=== PATIENT | male | born 1965 | race Caucasian/White ===

== ENCOUNTER 2018-06-12 09:21 | Inpatient (IN) ==
[~2018-06-12 09:21] MED LIST: Aminoglycoside Consult 1 EACH MC ONE
[2018-06-12] MEDS ORDERED: methylPREDNISolone 125 MG/2 ML VIAL IVP ONE (09:42)
[2018-06-12] MEDS ORDERED: Isovue-370 500 ML BOTTLE IVP ONE (09:42)
[2018-06-12] MEDS ORDERED: Ipratropium/Albuterol Neb 3 ML IH ONE (09:42)
[2018-06-12] MEDS ORDERED: 0.9 % Sodium Chloride 500 ML IVC ONE ×2 (09:43→12:05)
--- NOTE | 2018-06-12 09:47 | Emergency Department Note ---
Disposition Clinical Impression: COPD exacerbation, Elevated troponin, Acute respiratory failure with hypoxia Pneumonia Qualifiers: Pneumonia type: due to unspecified organism Laterality: left Lung location: lower lobe of lung Qualified Code(s): J18.1 - Lobar pneumonia, unspecified organism Disposition: Admitted As Inpatient Condition: Fair Time of Disposition: 13:24 General Adult HPI - General Chief complaint: ED Shortness of Breath/Dyspnea Stated complaint: LITTLE Time Seen by Provider: 06/12/18 09:28 Source: patient, EMS Mode of arrival: EMS Limitations: no limitations Nursing Notes Reviewed: Yes Vital Signs Reviewed: Yes - History of Present Illness HPI Narrative: Patient is a 52-year-old male with a past medical history of COPD and lung cancer presents to the emergency department for evaluation of dyspnea that has been going on for approximately 2 days. 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 Patient has undergone chemotherapy and radiation treatments back in February 2018. States over the pas 2 days he has had increased work of breathing, using his when necessary 2 L nasal cannula, 3 breathing treatments since 1 AM it is also had increased sputum production. The patient also complains of right-sided chest pain, however patient states that this is chronic since he has been getting treated for his lung cancer states he also has history of a collapsed right middle lobe. Denies history of blood clots. Squad states the patient was requiring 15 L nonrebreather mask to bring his oxygen up to 100%. Pain Scale: 6 - Related Data Home Medications Medication Instructions Recorded Confirmed RX: Aclidinium [place] [Tudorza 400 mcg IH BID 02/24/16 06/12/18 Pressair] RX: Albuterol Sulfate [Proair Hfa] 2 puff IH Q4H PRN 02/24/16 06/12/18 RX: Budesonide/Formoterol 160/4.5 2 puff IH BIDR 02/24/16 06/12/18 [Symbicort 160/4.5] RX: Cyclobenzaprine HCl 5 mg PO BID 02/24/16 06/12/18 RX: Gabapentin [Neurontin] 300 mg PO BID 02/24/16 06/12/18 Hydrocodone/Acetaminophen [[place] 1 each PO BID PRN 06/12/18 06/12/18 10-325 Tablet] RX: traZODone [TraZODone] 100 mg PO HS 06/12/18 06/12/18 Allergies Allergy/AdvReac Type Severity Reaction Status Date / Time tapentadol [From Nucynta] Allergy Difficulty Verified 06/12/18 09:39 Breathing doxycycline AdvReac Irritable Verified 06/12/18 09:39 levofloxacin [From Levaquin] AdvReac Irritable Verified 09/28/17 09:47 All systems ED: reviewed and negative except as stated. Review of Systems: As Per HPI Constitutional: Denies: fever, chills ENT ED: Denies: congestion Cardiovascular: Reports: chest pain, dyspnea on exertion. Denies: palpitations, edema, syncope, paroxysmal nocturnal dyspnea Respiratory: Reports: cough, dyspnea, wheezes, sputum production. Denies: hemoptysis Gastrointestinal: Denies: abdominal pain, nausea, vomiting Genitourinary: Denies: urgency, dysuria, frequency Musculoskeletal: Denies: back pain, neck pain Integumentary: Denies: rash, abrasion Neurological: Denies: headache Past Medical History - Past Medical History Attestation: Yes The following information was validated with the patient. Medical history: Reports: cancer, COPD Surgical history: Reports: orthopedic, other Psychiatric history: Reports: no psych history - Social History Smoking Status: Light tobacco smoker Smokeless Tobacco Status: No Alcohol use: Reports: none Drug use: Reports: none Physical Exam - General Limitations: no limitations General appearance: alert, in distress ([id number] respiratory distress tachycardic and tachypnea. Difficulty speaking in full sentences.) - Head Head exam: atraumatic, normocephalic, normal inspection - Eye Eye exam: Present: normal appearance, PERRL, EOMI - ENT ENT exam: normal exam, normal oropharynx, mucous membranes dry - Neck Neck exam: Present: normal inspection, full ROM, trachea midline - Chest Chest inspection: Present: normal inspection, symmetric chest wall rise. Absent: tenderness - Respiratory Respiratory exam: Present: respiratory distress, wheezes, other (Diminished sounds throughout) - Cardiovascular Cardiovascular exam: Present: normal rhythm, tachycardia, +S1, +S2 - Abdominal Exam Abdominal exam: Present: soft, Non-Tender. Absent: tenderness, distention, guarding, rebound, rigidity - Extremities Exam Extremities exam: Present: normal inspection, full ROM. Absent: tenderness, pedal edema - Back Exam Back exam: Present: normal inspection, full ROM. Absent: tenderness - Neurological Exam Neurological exam: Present: alert, oriented X3 - Psychiatric Psychiatric exam: Present: normal affect, normal mood - Skin Skin exam: Present: warm, dry, intact, normal color Course Course Narrative: Patient presents with dyspnea and exam shows sinus tachycardia, tachypnea as well as wheezing with diminished lung sounds. He is currently diagnosed with primary lung cancer with metastases to lymph nodes. He receives his treatment from the [facility] in [place], [place]. States last chemotherapy/radiation was in February 2018. Plan is times for the patient undergo evaluation for his dyspnea concern is for COPD exacerbation versus pne umonia versus pulmonary embolism. He is also meeting sepsis criteria with possible source COPD versus pneumonia. We will order lactate, cultures, basic labs and a CTA of the chest to evaluate for PE. Pending chest x-ray patient will be started antibiotics for COPD versus pneumonia. At first he will initiate BiPAP given his respiratory distress at this time. - Reevaluation(s) Reevaluation #1: Antibiotics ordered. Time: 10:51 Reevaluation #2: Patient is improving on BiPAP. His heart rate is in the 105 this is oxygen saturation is at 97%. He states he is feeling better after the breathing treatments. Discussed that his CTA was negative for pulmonary embolism. Discussed plan to admit in the hospital for continued treatment for pneumonia and COPD. I also discussed his elevation in troponin which is most likely due to demand ischemia. I discussed the patient's case with the hospitalist on-call and he agreed to accept the patient requested that we start the patient on low- dose ACS heparin. They have artery placed orders. Patient was accepted the hospital. Time: 13:23 Vital Signs Temperature 98.3 F 06/12/18 09:27 Pulse Rate 131 06/12/18 09:27 Respiratory Rate 36 06/12/18 09:27 Blood Pressure 87/65 06/12/18 09:27 O2 Sat by Pulse Oximetry 83 06/12/18 09:27 Temperature 97.8 F 06/13/18 04:08 Pulse Rate 110 06/13/18 12:08 Respiratory Rate 16 06/13/18 12:08 Blood Pressure 125/82 06/13/18 12:08 O2 Sat by Pulse Oximetry 91 06/13/18 12:08 Oxygen Delivery Oxygen Delivery Oximizer Medical Decision Making - Medical Records Medical records reviewed: Yes I reviewed the patient's medical records. - Lab Data Lab results reviewed: Yes I reviewed the patient's lab results. Result diagrams: 06/13/18 00:38 06/13/18 00:38 Lab Results 06/12/18 06/12/18 06/12/18 Range/Units 10:25 10:25 10:25 WBC 16.7 H (4.3-11.1) K/mcL RBC 4.13 L (4.19-5.50) M/mcL Hgb 13.3 (12.9-16.9) g/dL Hct 39.4 (37.5-50.1) % MCV 95.4 (83.0-100.0) fL MCH 32.2 (28.0-33.3) pg MCHC 33.8 (31.6-35.5) g/dL RDW 13.2 (11.5-14.5) % Plt Count 204 (140-400) K/mcL MPV 9.5 (9.4-12.4) fL Immature Gran % 0.4 (0-4) % Seg Neutrophils % 92.3 % Lymphocytes % 2.1 % Monocytes % 5.0 % Eosinophils % 0.1 % Basophils % 0.1 % Neutrophils # 15.4 H (1.6-8.9) K/mcL Lymphocytes # 0.4 L (0.6-4.6) K/mcL Monocytes # 0.8 (0.0-1.3) K/mcL Eosinophils # 0.0 (0.0-0.6) K/mcL Basophils # 0.0 (0.0-0.2) K/mcL PT (9.4-12.1) Seconds INR Heparin Anti-Xa, Unfract (0.30-0.70) IU/mL ABG pH (7.32-7.45) pH Units ABG pCO2 (35-45) mmHg ABG pO2 (85-104) mmHg ABG HCO3 (21-27) mEq/L ABG Total CO2 (20-26) mEq/L ABG O2 Saturation (95-98) % ABG Base Excess (-2 to 3) mEq/L O2 Delivery Device Inspired O2 (1-15=lpm [id number]=%) Sodium 130 L (136-145) mEq/L Potassium 4.4 (3.5-5.1) mEq/L Chloride 96 L (98-107) mEq/L Carbon Dioxide 20 L (23-29) mEq/L BUN 28 H (6-20) mg/dL Creatinine 0.81 (0.70-1.30) mg/dL Est GFR ( Amer) > 60 (> 60) Est GFR (Non-Af Amer) > 60 (> 60) BUN/Creatinine Ratio 35 H (6-26) Glucose 109 H (70-105) mg/dL Calculated Osmolality 276 L (280-300) Lactic Acid 1.1 (0.5-2.2) mmol/L Calcium 8.1 L (8.6-10.3) mg/dL Phosphorus 3.6 (2.7-4.5) mg/dL Magnesium 2.1 (1.6-2.6) mg/dL Troponin I 0.26 H* (< 0.04) ng/mL 06/12/18 06/12/18 06/12/18 Range/Units 13:11 13:11 13:11 WBC 15.7 H (4.3-11.1) K/mcL RBC 4.04 L (4.19-5.50) M/mcL Hgb 13.2 (12.9-16.9) g/dL Hct 39.0 (37.5-50.1) % MCV 96.5 (83.0-100.0) fL MCH 32.7 (28.0-33.3) pg MCHC 33.8 (31.6-35.5) g/dL RDW 13.0 (11.5-14.5) % Plt Count 202 (140-400) K/mcL MPV 9.4 (9.4-12.4) fL Immature Gran % (0-4) % Seg Neutrophils % % Lymphocytes % % Monocytes % % Eosinophils % % Basophils % % Neutrophils # (1.6-8.9) K/mcL Lymphocytes # (0.6-4.6) K/mcL Monocytes # (0.0-1.3) K/mcL Eosinophils # (0.0-0.6) K/mcL Basophils # (0.0-0.2) K/mcL PT 11.4 (9.4-12.1) Seconds INR 1.0 Heparin Anti-Xa, Unfract 0.00 L (0.30-0.70) IU/mL ABG pH (7.32-7.45) pH Units ABG pCO2 (35-45) mmHg ABG pO2 (85-104) mmHg ABG HCO3 (21-27) mEq/L ABG Total CO2 (20-26) mEq/L ABG O2 Saturation (95-98) % ABG Base Excess (-2 to 3) mEq/L O2 Delivery Device Inspired O2 (1-15=lpm [id number]=%) Sodium (136-145) mEq/L Potassium (3.5-5.1) mEq/L Chloride (98-107) mEq/L Carbon Dioxide (23-29) mEq/L BUN (6-20) mg/dL Creatinine (0.70-1.30) mg/dL Est GFR ( Amer) (> 60) Est GFR (Non-Af Amer) (> 60) BUN/Creatinine Ratio (6-26) Glucose (70-105) mg/dL Calculated Osmolality (280-300) Lactic Acid (0.5-2.2) mmol/L Calcium (8.6-10.3) mg/dL Phosphorus (2.7-4.5) mg/dL Magnesium (1.6-2.6) mg/dL Troponin I 0.28 H* (< 0.04) ng/mL 06/12/18 06/12/18 Range/Units 17:04 18:53 WBC (4.3-11.1) K/mcL RBC (4.19-5.50) M/mcL Hgb (12.9-16.9) g/dL Hct (37.5-50.1) % MCV (83.0-100.0) fL MCH (28.0-33.3) pg MCHC (31.6-35.5) g/dL RDW (11.5-14.5) % Plt Count (140-400) K/mcL MPV (9.4-12.4) fL Immature Gran % (0-4) % Seg Neutrophils % % Lymphocytes % % Monocytes % % Eosinophils % % Basophils % % Neutrophils # (1.6-8.9) K/mcL Lymphocytes # (0.6-4.6) K/mcL Monocytes # (0.0-1.3) K/mcL Eosinophils # (0.0-0.6) K/mcL Basophils # (0.0-0.2) K/mcL PT (9.4-12.1) Seconds INR Heparin Anti-Xa, Unfract (0.30-0.70) IU/mL ABG pH 7.32 (7.32-7.45) pH Units ABG pCO2 47 H (35-45) mmHg ABG pO2 114 H (85-104) mmHg ABG HCO3 25 (21-27) mEq/L ABG Total CO2 26 (20-26) mEq/L ABG O2 Saturation 98 (95-98) % ABG Base Excess -2 (-2 to 3) mEq/L O2 Delivery Device BiPAP Inspired O2 50.0 (1-15=lpm ma95-183=%) Sodium (136-145) mEq/L Potassium (3.5-5.1) mEq/L Chloride (98-107) mEq/L Carbon Dioxide (23-29) mEq/L BUN (6-20) mg/dL Creatinine (0.70-1.30) mg/dL Est GFR ( Amer) (> 60) Est GFR (Non-Af Amer) (> 60) BUN/Creatinine Ratio (6-26) Glucose (70-105) mg/dL Calculated Osmolality (280-300) Lactic Acid (0.5-2.2) mmol/L Calcium (8.6-10.3) mg/dL Phosphorus (2.7-4.5) mg/dL Magnesium (1.6-2.6) mg/dL Troponin I 0.24 H* (< 0.04) ng/mL - Radiology Data Radiology results reviewed: Yes I reviewed the patient's radiology results. Chest X-Ray 06/12/18 09:41 IMPRESSION: COPD with chronic interstitial lung changes. Bibasilar atelectasis or infiltrate left greater than right. D/ / 06/12/2018 10:01:45 Harpreet Ash MD / Michelle Conley Interpreting Provider: Harpreet Ash MD Chest CTA 06/12/18 09:42 IMPRESSION: 1. No acute pulmonary artery embolism. 2. Emphysema with interval development small thin walled cavitary lesions within the upper lobes concerning for postinfectious/inflammatory origin. Continued close interval follow-up recommended. 3. Bilateral lower lobe, right middle lobe and lingular peribronchial thickening with distal airspace disease. Findings suggest postinfectious or inflammatory origin. Continued follow-up recommended to assure resolution. 4. Stable right middle lobe pulmonary nodule. D/ / 06/12/2018 12:13:08 Harpreet Ash MD / Michelle Conley Interpreting Provider: Harpreet Ash MD - EKG Data EKG #1 EKG attestation: Yes I reviewed and interpreted this EKG. EKG results narrative: EKG done at 9:56 shows sinus tachycardia at a rate of 119 bpm. Normal axis. Intervals within normal limits. No signs of ST elevation, ST depression or Q waves present. Attestation Statement - Attestation Attestation: Resident Attestation: I examined this patient and my medical decision making was reviewed with the Resident Physician. I agree with the documented findings, disposition and treatment plan as described except to the extent set forth below. We independently had [id number] contact with the patient. Patient with history of lung cancer previously underwent chemoradiation therapy. Not on current cancer treatment presented for evaluation of shortness of breath worsening over the last 2 days. Further evaluation and workup and to underlying etiology. Breathing treatments and steroids and further investigation. Moderate respiratory distress with associated wheezing to bilateral lung sesay Patient with elevated troponin. CTA negative. Patient significant improved with BiPAP. Patient will undergo admission for further management.
[2018-06-12 10:44] LABS: Basophils % 0.1 %; Eosinophils % 0.1 %; Hematocrit 39.4 % (37.5-50.1); Hemoglobin 13.3 g/dL (12.9-16.9); Immature Granulocytes % 0.4 % (0-4); Lymphocytes # 0.4 K/mcL (0.6-4.6); Lymphocytes % 2.1 %; Mean Corpuscular HGB Conc 33.8 g/dL (31.6-35.5); Mean Corpuscular Hemoglobin 32.2 pg (28.0-33.3); Mean Corpuscular Volume 95.4 fL (83.0-100.0); Mean Platelet Volume 9.5 fL (9.4-12.4); Monocytes # 0.8 K/mcL (0.0-1.3); Neutrophils # 15.4 K/mcL (1.6-8.9); Platelet Count 204 K/mcL (140-400); Red Blood Count 4.13 M/mcL (4.19-5.50); Red Cell Distribution Width 13.2 % (11.5-14.5); Segmented Neutrophils % 92.3 %
[2018-06-12] MEDS ORDERED: Piperacillin/Tazobactam 3.375 GM in Water for inj. (sterile) 20 ML 20 ML IVP ONE (10:49)
[2018-06-12] MEDS ORDERED: Azithromycin 500 MG in D5% in Water 250 ML IVPB ONE (10:50)
[2018-06-12 11:03] LABS: BUN/Creatinine Ratio 35 (6-26); Blood Urea Nitrogen 28 mg/dL (6-20); Calcium 8.1 mg/dL (8.6-10.3); Carbon Dioxide 20 mEq/L (23-29); Chloride 96 mEq/L (98-107); Glucose 109 mg/dL (70-105); Magnesium 2.1 mg/dL (1.6-2.6); Osmolality,Calculated 276 (280-300); Phosphorous 3.6 mg/dL (2.7-4.5); Potassium 4.4 mEq/L (3.5-5.1); Sodium 130 mEq/L (136-145); eGFR For Non-African Americans > 60 (> 60)
[2018-06-12 11:14] LABS: Troponin I 0.26 ng/mL (< 0.04)
[2018-06-12] MEDS ORDERED: Aspirin 325 MG TABLET PO ONE (12:41)
[2018-06-12] MEDS ORDERED: Naloxone 0.4 MG/ML INJ IVP PRN (12:50)
[2018-06-12] MEDS ORDERED: traMADol 50 MG TABLET PO PRN (12:52)
[2018-06-12] MEDS ORDERED: *HR* Heparin 5,000 UNIT/ML VIAL IVP ONE (12:55)
[2018-06-12] MEDS ORDERED: *HR* Heparin 5,000 UNIT/ML VIAL IVP PRN (12:55)
[2018-06-12 13:31] LABS: Hemoglobin 13.2 g/dL (12.9-16.9); Mean Corpuscular HGB Conc 33.8 g/dL (31.6-35.5); Mean Corpuscular Hemoglobin 32.7 pg (28.0-33.3); Mean Corpuscular Volume 96.5 fL (83.0-100.0); Mean Platelet Volume 9.4 fL (9.4-12.4); Platelet Count 202 K/mcL (140-400); Red Blood Count 4.04 M/mcL (4.19-5.50)
[2018-06-12 13:48] LABS: Prothrombin Time 11.4 Seconds (9.4-12.1)
[2018-06-12] MEDS: Heparin 25,000 UNIT/500 ML D5W 25,000 UNIT/500 ML BAG IVC SCH (15:03)
--- NOTE | 2018-06-12 15:29 | Internal Med History&Physical ---
Date of Encounter: 06/12/18 Time of Encounter: 15:00 Internal Medicine - H&P: HPI Chief complaint: Shortness of breath, coughing, chest pain and wheezing since tuesday History of present illness: Mr. Garcia is a 52 year old male with pmh of lung cancer s/p one cycle of chemotherapy and radiation, tobacco abuse, COPD presenting with complaints of shortness of breath, coughing and wheezing since tuesday. Patient says symptoms were sudden onset and have persisted till today when he had to call EMS because the shortness of breath wasn't resolving. He denies any fevers or chills, admits to wheezing. He also complains of a pressure like left sided chest pain that has been radiating to the right side of 2 days duration. Per EMS, he was noted to be hypoxic at home and required 15L of oxygen via non rebreather mask to bring his sats up to 100% In the ER, he was placed on BIPAP and appears more comfortable. e was started on nebs and steroids and he is being admitted for further management. Past Med Surg Social Fam HX - Past Medical History Medical history: cancer, COPD Additional medical history: lung cancer Psychiatric history: no psych history - Past Surgical History Surgical History: orthopedic, other Additional surgical history: 2 left shoulder surgeries - left CTR - colonoscopy - Social History Smoking Status: Light tobacco smoker Smokeless Tobacco Status: No Alcohol use: none Drug use: none Internal Medicine - H&P: Meds Fluticasone Propionate Nasal [Flonase] 2 spray NS DAILY 7 Days bottle 06/28/15 [Rx] Aclidinium [place] [Tudorza Pressair] 400 mcg IH BID 02/24/16 [History] Albuterol Sulfate [Proair Hfa] 2 puff IH Q4H PRN 02/24/16 [History] Budesonide/Formoterol 160/4.5 [Symbicort 160/4.5] 2 puff IH BIDR 02/24/16 [History] Cyclobenzaprine HCl 5 mg PO BID 02/24/16 [History] Gabapentin [Neurontin] 300 mg PO BID 02/24/16 [History] traMADol [Ultram] 50 mg PO Q6H PRN 02/24/16 [History] Nicotine Patch [Nicoderm] 21 mg TD DAILY patch.td24 02/25/16 [Rx] DiphenhydraMINE [Benadryl] 50 mg PO Q8HR PRN #30 capsule 12/29/16 [Rx] Allergy/AdvReac Type Severity Reaction Status Date / Time tapentadol [From Nucynta] Allergy Difficulty Verified 06/12/18 09:39 Breathing doxycycline AdvReac Irritable Verified 06/12/18 09:39 levofloxacin [From Levaquin] AdvReac Irritable Verified 09/28/17 09:47 All Systems PM: A 10-system review of systems was performed and is negative for pertinent findings except as documented above in the HPI. - Constitutional Constitutional: no chills, no fever(s), no night sweats - EENT Eyes: no change in vision, no discharge, no pain, no photophobia Ears: no ear discharge, no ear pain, no tinnitus Nose, mouth and throat: no dysphagia, no nasal discharge, no neck pain, no sore throat - Cardiovascular Cardiovascular ROS IM: dyspnea, no chest pain, no lightheadedness, no palpitations, no syncope - Respiratory Respiratory: cough, dyspnea, wheezing, no excessive phlegm production - Gastrointestinal Gastrointestinal: no abdominal pain, no diarrhea, no hematemesis, no hematochezia, no melena, no nausea, no vomiting - Musculoskeletal Musculoskeletal ROS IM: no numbness, no tingling - Integumentary Integumentary IM: no rash, no unusual bruising - Neurological Neurological ROS: no confusion, no convulsions, no focal weakness, no numbness, no tingling, no tremor(s) - Hematologic/Lymphatic Hematologic/Lymphatic: no easy bruising - Constitutional Vitals: Temp Pulse Resp BP Pulse Ox 98.3 F 108 22 100/75 99 06/12/18 09:27 06/12/18 15:08 06/12/18 15:08 06/12/18 15:08 06/12/18 15:08 General appearance: Present: mild distress Exam: Pt in mild respiratory distress. ON BIPAP - Head Head exam: Present: atraumatic, normocephalic - Eye Eye exam: Present: PERRL, conjuntiva pink, sclera anicteric Pupils: Present: PERRL - Neck Neck exam general surgery: Present: supple, trachea midline. Absent: lymphadenopathy - Respiratory Respiratory exam: Present: wheezes. Absent: accessory muscle use, rales, rhonchi - Cardiovascular Cardiovascular exam: Present: RRR, +S1, +S2. Absent: diastolic murmur, gallop, rubs, systolic murmur - GI/Abdominal GI/Abdominal exam: Present: normal bowel sounds, soft, no peritoneal signs. Absent: distended, tenderness - Extremities Exam Extremities exam: Present: warm, radial pulses palpable and symmetrical. Absent: calf tenderness, cyanotic, pedal edema - Neurological Exam Neurological exam: Present: CN II-XII intact, oriented X3, no focal deficits. Absent: pronater drift, facial droop, speech deficit - Skin Skin exam: Present: dry, intact Internal Med - H&P Results - Labs CBC & Chem 7: 06/12/18 13:11 06/12/18 10:25 Labs: Short CBC 06/12/18 06/12/18 Range/Units 10:25 13:11 WBC 16.7 H 15.7 H (4.3-11.1) K/mcL Hgb 13.3 13.2 (12.9-16.9) g/dL Hct 39.4 39.0 (37.5-50.1) % Plt Count 204 202 (140-400) K/mcL Neutrophils # 15.4 H (1.6-8.9) K/mcL BMP 06/12/18 10:25 Sodium 130 L Potassium 4.4 Chloride 96 L Carbon Dioxide 20 L BUN 28 H Creatinine 0.81 Glucose 109 H Calcium 8.1 L Cardiac Enzymes 06/12/18 06/12/18 Range/Units 10:25 13:11 Troponin I 0.26 H* 0.28 H* (< 0.04) ng/mL - Impressions ITS Impressions Chest X-Ray 06/12/18 09:41 IMPRESSION: COPD with chronic interstitial lung changes. Bibasilar atelectasis or infiltrate left greater than right. D/ / 06/12/2018 10:01:45 Harpreet Ash MD / Michelle Conley Interpreting Provider: Harpreet Ash MD Chest CTA 06/12/18 09:42 IMPRESSION: 1. No acute pulmonary artery embolism. 2. Emphysema with interval development small thin walled cavitary lesions within the upper lobes concerning for postinfectious/inflammatory origin. Continued close interval follow-up recommended. 3. Bilateral lower lobe, right middle lobe and lingular peribronchial thickening with distal airspace disease. Findings suggest postinfectious or inflammatory origin. Continued follow-up recommended to assure resolution. 4. Stable right middle lobe pulmonary nodule. D/ / 06/12/2018 12:13:08 Harpreet Ash MD / Michelle Conley Interpreting Provider: Harpreet Ash MD - Assessment and plan (1) Acute respiratory failure with hypoxia Current Visit: Yes Status: Acute Assessment and plan: Pt presents with cough, shortness of breath and wheezing since tuesday with hypoxia and O2 sats of 83% Currently on BIPAP with 50% FiO2. required 100% oxygen via facemask in EMS. Likely 2/2 to COPD exacerbation Obtain ABG, conitnue on BIPAP, nebs, steroids and antibiotics. On vanc and zosyn for possible HCAP (2) COPD exacerbation Current Visit: Yes Status: Acute Assessment and plan: See #1. continue BIPAP, nebs, steroids and antibiotics (3) Pneumonia Current Visit: Yes Status: Acute Assessment and plan: Pt has elevated WBC of 15 query bacterial HCAP. Obtain blood cultures ON vanc and zosyn Qualifiers: Pneumonia type: due to unspecified organism Laterality: left Lung location: lower lobe of lung Qualified Code(s): J18.1 - Lobar pneumonia, unspecified organism (4) Elevated troponin Current Visit: Yes Status: Acute Assessment and plan: Pt has chest pain with troponins eevated to 0.26 which is much higher than his baseline of negative troponins HAs risk factors for CAD including age and tobacco abuse. Started on a heparin drip, cardiology consulted (5) Chest pain Current Visit: No Status: Acute Assessment and plan: See plan for elevated troponins Qualifiers: Chest pain type: chest pain on breathing Qualified Code(s): R07.1 - Chest pain on breathing (6) Tobacco abuse disorder Current Visit: Yes Status: Acute Assessment and plan: Counseled (7) DVT prophylaxis Current Visit: Yes Status: Acute Assessment and plan: On heparin drip - Time Spent With Patient Total time spent is greater than 50% in coordination of care (as documented) at patient's floor/unit and/or counseling patient:
[2018-06-12] MEDS ORDERED: Piperacillin/Tazobactam 3.375 GM in 0.9 % Sodium Chloride Mini Bag 100 ML IVPB SCH (16:00)
[2018-06-12] MEDS: Budesonide/Formoterol 160/4.5 1 PUFF INH IH SCH ×2 (16:11→20:02)
[2018-06-12] MEDS: Ipratropium/Albuterol Neb 3 ML IH SCH ×2 (17:02→20:01)
[2018-06-12 17:11] LABS: ABG Base Excess -2 mEq/L (-2 to 3); ABG HCO3 25 mEq/L (21-27); ABG Oxygen Saturation 98 % (95-98); ABG PCO2 47 mmHg (35-45); ABG PH 7.32 pH Units (7.32-7.45); ABG PO2 114 mmHg (85-104); ABG TCO2 26 mEq/L (20-26)
[2018-06-12] MEDS: methylPREDNISolone 125 MG/2 ML VIAL IVP SCH (17:24)
[2018-06-12] MEDS ORDERED: *HR* Heparin 5,000 UNIT/ML VIAL SQ SCH (18:00)
[2018-06-12] MEDS: *HR* Heparin 5,000 UNIT/ML VIAL IVP PRN (23:49)
[2018-06-12] MEDS: Gabapentin 300 MG CAPSULE PO SCH (23:56)
[2018-06-13] MEDS: Ipratropium/Albuterol Neb 3 ML IH SCH ×6 (00:42→20:16)
[2018-06-13 00:54] LABS: Basophils % 0.1 %; Hematocrit 37.8 % (37.5-50.1); Hemoglobin 12.7 g/dL (12.9-16.9); Immature Granulocytes % 0.2 % (0-4); Lymphocytes # 0.4 K/mcL (0.6-4.6); Lymphocytes % 2.4 %; Mean Corpuscular HGB Conc 33.6 g/dL (31.6-35.5); Mean Corpuscular Hemoglobin 31.8 pg (28.0-33.3); Mean Corpuscular Volume 94.7 fL (83.0-100.0); Mean Platelet Volume 9.7 fL (9.4-12.4); Monocytes # 0.5 K/mcL (0.0-1.3); Monocytes % 3.3 %; Neutrophils # 15.2 K/mcL (1.6-8.9); Platelet Count 196 K/mcL (140-400); Red Blood Count 3.99 M/mcL (4.19-5.50); Red Cell Distribution Width 13.1 % (11.5-14.5)
[2018-06-13] MEDS: methylPREDNISolone 125 MG/2 ML VIAL IVP SCH ×4 (01:18→23:35)
[2018-06-13 02:06] LABS: BUN/Creatinine Ratio 36 (6-26); Blood Urea Nitrogen 21 mg/dL (6-20); Calcium 8.7 mg/dL (8.6-10.3); Carbon Dioxide 23 mEq/L (23-29); Chloride 99 mEq/L (98-107); Glucose 131 mg/dL (70-105); Magnesium 2.4 mg/dL (1.6-2.6); Osmolality,Calculated 285 (280-300); Phosphorous 2.2 mg/dL (2.7-4.5); Potassium 4.4 mEq/L (3.5-5.1); Sodium 135 mEq/L (136-145); eGFR For Non-African Americans > 60 (> 60)
[2018-06-13] MEDS: Piperacillin/Tazobactam 3.375 GM in 0.9 % Sodium Chloride Mini Bag 100 ML IVPB SCH ×3 (05:40→21:26)
[2018-06-13] MEDS: Budesonide/Formoterol 160/4.5 1 PUFF INH IH SCH ×2 (07:44→20:16)
[2018-06-13 09:33] LABS: Estimated Average Glucose 128 mg/dl; Hemoglobin A1C 6.1 %
[2018-06-13 09:41] LABS: Chol/HDL Ratio 2.7 (0-4.9)
[2018-06-13] MEDS: Aspirin Enteric Coated 81 MG Tablet PO SCH (10:26)
[2018-06-13] MEDS: Gabapentin 300 MG CAPSULE PO SCH ×2 (10:26→20:44)
[2018-06-13] MEDS: Nicotine 21 MG PATCH.TD24 TD SCH (10:28)
[2018-06-13] MEDS: *HR* Heparin 5,000 UNIT/ML VIAL IVP PRN ×2 (10:28→18:02)
--- NOTE | 2018-06-13 11:34 | Internal Med Progress Note ---
Hospitalist Progress Note - Encounter Date of Encounter: 06/13/18 Time of Encounter: 09:00 - Subjective Interval History: H&P reviewed. Pt with history of lung cancer s/p chemoradiotx x 1 cycle, completed 01/2018, COPD is admitted for hypoxic respiratory failure. CT showed small thin walled cavitary lesions within the upper lobes concerning for postinfectious/inflammatory origin as well as bilateral lower lobe, right middle lobe and lingular peribronchial thickening with distal airspace disease. Was initialy requiring BiPaP which has been weaned. Feels more comfortable to breath now, denies any chest pain or SOB. - Exam Vitals: Temp Pulse Resp BP Pulse Ox 97.8 F 98 17 110/65 95 06/13/18 04:08 06/13/18 07:47 06/13/18 07:47 06/13/18 07:47 06/13/18 07:47 Exam: General: Alert and oriented, not in acute distress. Cardiovascular:Normal S1 & S2, No JVD. Pulse regular. Lungs: bilateral wheezes Abdomen:Soft, non-tender, no rigidity. Extremities:No deformity or swelling Neurological:Normal cognition and motor skills. Non-focal - Assessment and Plan (1) Acute respiratory failure with hypoxia Current Visit: Yes Status: Acute Assessment and Plan: Pt presents with cough, shortness of breath and wheezing since tuesday with hypoxia Likely 2/2 to PNA complicated by COPD exacerbation CT finding as above started on vanc/zosyn, will continue zosyn but d/c vanc as MRSA -ve add macrolide continue steroids, bronchodilators check respiratory viral panel pt states that he had recent CT Chest as outpatient at [facility] ~ 2 weeks ago, obtain old records to compare the appearance of upper lobe cavitary lesions if they are new, may require pulm consult for ?bronchoscopy (2) Elevated troponin Current Visit: Yes Status: Acute Assessment and Plan: troponin peaked at 0.28 without concerning EKG changes or symptoms of ACS, in the setting of hypoxic respiratory failure started on heparin gtt, will continue daily ASA for now pt states that he has had recent stress at [facility] as well, obtain old records echocardiogram follow with cardiology (3) COPD exacerbation Current Visit: Yes Status: Acute Assessment and Plan: as above (4) Pneumonia Current Visit: Yes Status: Acute Assessment and Plan: as above strep/legionella ag (5) Tobacco abuse disorder Current Visit: Yes Status: Acute Assessment and Plan: counseling provided NRT (6) DVT prophylaxis Current Visit: Yes Status: Acute Assessment and Plan: On heparin drip - Time Spent with Patient Total time spent is greater than 50% in coordination of care (as documented) at patient's floor/unit and/or counseling patient: Plan of Care Discussed with: patient Internal Medicine: Result - Labs CBC & Chem 7: 06/13/18 00:38 06/13/18 00:38 Labs: Short CBC 06/12/18 06/13/18 Range/Units 13:11 00:38 WBC 15.7 H 16.2 H (4.3-11.1) K/mcL Hgb 13.2 12.7 L (12.9-16.9) g/dL Hct 39.0 37.8 (37.5-50.1) % Plt Count 202 196 (140-400) K/mcL Neutrophils # 15.2 H (1.6-8.9) K/mcL BMP 06/13/18 00:38 Sodium 135 L Potassium 4.4 Chloride 99 Carbon Dioxide 23 BUN 21 H Creatinine 0.59 L Glucose 131 H Calcium 8.7 Cardiac Enzymes 06/12/18 06/12/18 06/13/18 Range/Units 13:11 18:53 00:38 Troponin I 0.28 H* 0.24 H* 0.17 H* (< 0.04) ng/mL - ABG Interpretation ABG results: ABG ABG pH 7.32 pH Units (7.32-7.45) 06/12/18 17:04 ABG pCO2 47 mmHg (35-45) H 06/12/18 17:04 ABG pO2 114 mmHg (85-104) H 06/12/18 17:04 ABG O2 Saturation 98 % (95-98) 06/12/18 17:04 PT/INR, D-dimer PT 11.4 Seconds (9.4-12.1) 06/12/18 13:11 - Impressions Impressions Chest X-Ray 06/12/18 09:41 IMPRESSION: COPD with chronic interstitial lung changes. Bibasilar atelectasis or infiltrate left greater than right. D/ / 06/12/2018 10:01:45 Harpreet Ash MD / Michelle Conley Interpreting Provider: Harpreet Ash MD Chest CTA 06/12/18 09:42 IMPRESSION: 1. No acute pulmonary artery embolism. 2. Emphysema with interval development small thin walled cavitary lesions within the upper lobes concerning for postinfectious/inflammatory origin. Continued close interval follow-up recommended. 3. Bilateral lower lobe, right middle lobe and lingular peribronchial thickening with distal airspace disease. Findings suggest postinfectious or inflammatory origin. Continued follow-up recommended to assure resolution. 4. Stable right middle lobe pulmonary nodule. D/ / 06/12/2018 12:13:08 Harpreet Ash MD / Michelle Conley Interpreting Provider: Harpreet Ash MD Consult Discharge Plan - Plan Referrals: Luzma Lewis DO [Resident] - (4) Pneumonia Qualifiers: Pneumonia type: due to unspecified organism Laterality: left Lung location: lower lobe of lung Qualified Code(s): J18.1 - Lobar pneumonia, unspecified organism
[2018-06-13] MEDS ORDERED: Azithromycin 500 MG in D5% in Water 250 ML IVPB SCH (12:00)
--- NOTE | 2018-06-13 12:36 | Cardiology Consult Note ---
<Salina Dupree - Last Filed: 06/13/18 12:41> Date of Encounter: 06/13/18 Time of Encounter: 09:00 Assessment and Plan (1) Acute respiratory failure with hypoxia Current Visit: Yes Status: Acute Per cardiology: -Admitted with acute hypoxic respiratory failure. -?pneumonia, ATB ordered. -Known lung CA with mets, being treated with chemo and radiation -Management per primary service. (2) Elevated troponin Current Visit: Yes Status: Acute Per cardiology: -Troponins 0.26, 0.28, 0.24, 0.17 in the setting of hypoxic respiratory failure, pneumonia. -Reports atypical, pleuritic chest pain. -NO acute ischemic ECG changes. -TTE pending. -Was started on ASA, heparin per primary service. -Reports recent stress and echo at [facility]. -Of note, reports hemoptysis. Denies hemotpysis overnight. Hemoglobin stable. -Possible demand ischemia related to above. TTE pending. -Will start BB, statin. -Will obtain records from [facility]. -Monitor hemoglobin and for hemoptysis closely with ASA and heparin. Discussion w patient/family: The assessment and plan as outlined above was discussed with the patient who expressed understanding and agreement. All questions were answered. Thank you for involving us in the care of your patient. Please call with any questions. Discussed and reviewed with . History of Present Illness Consult date: 06/12/18 Requesting physician: Ja Arredondo Consult reason: elevated troponin Chief complaint: shortness of breath History of present illness: Mr. Garcia is a 52 year old male with a relevant past medical history of COPD, lung cancer s/p chemo and radiation at [facility], current tobacco abuse, who presented to [facility] with complaints of worsening shortness of breath. Patient reports symptoms started on Tuesday and became progressively worse. Patient reports chest pain with deep breathing and cough. Denies current or exertional chest pain. Reports breathing improved today. Patient also reports hemoptysis over the past couple of weeks. Denies hemoptysis overnight. Past Med Surg Social Fam HX - Past Medical History Attestation: Yes The following information was validated with the patient. Source: patient, old records reviewed Medical history: cancer, COPD Additional medical history: lung cancer Psychiatric history: no psych history - Past Surgical History Surgical History: orthopedic, other Additional surgical history: 2 left shoulder surgeries - left CTR - colonoscopy - Social History Smoking Status: Light tobacco smoker Packs per day: 1/4 pack per day Smokeless Tobacco Status: No Alcohol use: none Drug use: none - Family History Mother Adopted: Yes Name: Lana Garcia Living Status: Age at : 89 Cause of : Old age Father Name: Zen Garcia Living Status: Age at : 58 Cause of : Lung cancer Hx Family Cancer: Yes Medications and Allergies Aclidinium [place] [Tudorza Pressair] 400 mcg IH BID 02/24/16 [History] Albuterol Sulfate [Proair Hfa] 2 puff IH Q4H PRN 02/24/16 [History] Budesonide/Formoterol 160/4.5 [Symbicort 160/4.5] 2 puff IH BIDR 02/24/16 [History] Cyclobenzaprine HCl 5 mg PO BID 02/24/16 [History] Gabapentin [Neurontin] 300 mg PO BID 02/24/16 [History] Hydrocodone/Acetaminophen [[place] 10-325 Tablet] 1 each PO BID PRN 06/12/18 [History] traZODone [TraZODone] 100 mg PO HS 06/12/18 [History] Allergy/AdvReac Type Severity Reaction Status Date / Time tapentadol [From Nucynta] Allergy Difficulty Verified 06/12/18 09:39 Breathing doxycycline AdvReac Irritable Verified 06/12/18 09:39 levofloxacin [From Levaquin] AdvReac Irritable Verified 09/28/17 09:47 All Systems Review: The remainder of the systems were reviewed and are negative - Cardiovascular Cardiovascular: as per HPI, chest pain at rest, dyspnea at rest, dyspnea on exertion Physical Examination Vital Signs, Last 4 Hours Pulse Resp BP Pulse Ox 06/13/18 12:08 110 16 125/82 91 06/13/18 11:37 18 93 General: Conversant, No Apparent Distress HEENT: Atraumatic, Normocephaly, Mucus Membranes Moist Neck: No JVD, Normal carotid pulses Cardiac: Reg Rate and Rhythm, Normal S1 and S2, No Murmur Lungs: Other (Lung sounds coarse, wheezes noted throughout. ) Neuro: Alert and responsive, No focal deficits noted Abdomen: Soft, Non-Tender Skin: No rashes noted on visualized skin Musculoskeletal: No Chest Wall Tenderness Extremities: No Clubbing, No Cyanosis, No Edema, Normal Pulses Results 06/13/18 00:38 06/13/18 00:38 Lab Results Impressions Chest X-Ray 06/12/18 09:41 IMPRESSION: COPD with chronic interstitial lung changes. Bibasilar atelectasis or infiltrate left greater than right. D/ / 06/12/2018 10:01:45 Harpreet Ash MD / Michelle Conley Interpreting Provider: Harpreet Ash MD Chest CTA 06/12/18 09:42 IMPRESSION: 1. No acute pulmonary artery embolism. 2. Emphysema with interval development small thin walled cavitary lesions within the upper lobes concerning for postinfectious/inflammatory origin. Continued close interval follow-up recommended. 3. Bilateral lower lobe, right middle lobe and lingular peribronchial thickening with distal airspace disease. Findings suggest postinfectious or inflammatory origin. Continued follow-up recommended to assure resolution. 4. Stable right middle lobe pulmonary nodule. D/ / 06/12/2018 12:13:08 Harpreet Ash MD / Michelle Conley Interpreting Provider: Harpreet Ash MD Active Medications Hydrocodone Bitart/Acetaminophen ([place] 10-325 Mg) 1 each PO BID PRN PRN Reason: Pain not controlled by ultram Stop: 12/13/18 07:42 Albuterol/Ipratropium (Duoneb) 3 ml IH [id number] [facility] Stop: 12/12/18 16:01 Last Admin: 06/13/18 11:37 Dose: 3 ml Aspirin (Aspirin Ec) 81 mg PO DAILY [facility] Stop: 12/13/18 09:01 Last Admin: 06/13/18 10:26 Dose: 81 mg Budesonide/Formoterol Fumarate (Symbicort) 2 puff IH BIDR [facility]; Protocol Stop: 12/12/18 13:01 Last Admin: 06/13/18 07:44 Dose: 2 puff Cyclobenzaprine HCl (Flexeril) 5 mg PO BID [facility] Stop: 12/12/18 21:01 Last Admin: 06/13/18 10:27 Dose: 5 mg Gabapentin (Neurontin) 300 mg PO BID [facility] Stop: 12/12/18 21:01 Last Admin: 06/13/18 10:26 Dose: 300 mg Heparin Sodium (Porcine) (Heparin) 3,900 unit 60 unit/kg (3900 unit) IVP Q6HR PRN PRN Reason: SEE COMMENTS Stop: 12/12/18 12:56 Heparin Sodium (Porcine) (Heparin) 2,000 unit 30 unit/kg (2000 unit) IVP Q6H PRN PRN Reason: SEE COMMENTS Stop: 12/12/18 12:56 Last Admin: 06/13/18 10:28 Dose: 2,000 unit Heparin Sodium/Dextrose (Heparin 25,000 Unit/500 Ml D5w) 25,000 unit in 500 mls @ 15.785 mls/hr IVC .Q24H [facility]; Protocol Stop: 12/12/18 13:01 Last Titration: 06/13/18 10:22 Dose: 16 unit/kg/hr, 21.047 mls/hr Piperacillin Sod/Tazobactam (Sod 3.375 gm/ Sodium Chloride) 100 mls @ 25 mls/hr IVPB Q8H [facility] Stop: 12/13/18 06:01 Last Admin: 06/13/18 05:40 Dose: 25 mls/hr Azithromycin 500 mg/ Dextrose 250 mls @ 252 mls/hr IVPB Q24H [facility] Stop: 12/13/18 12:01 Lorazepam (Ativan) 0.5 mg IVP TID PRN PRN Reason: Anxiety Stop: 12/13/18 15:01 Methylprednisolone (Solu-Medrol) 60 mg IVP Q8HR [facility] Stop: 12/12/18 16:01 Last Admin: 06/13/18 10:28 Dose: 60 mg Naloxone HCl (Narcan) 0.4 mg IVP Q2MIN PRN PRN Reason: SEE COMMENTS Stop: 12/12/18 12:51 Nicotine (Nicoderm) 21 mg TD DAILY [facility]; Protocol Stop: 12/13/18 09:01 Tramadol HCl (Ultram) 50 mg PO Q6H PRN PRN Reason: Pain Stop: 12/12/18 12:53 Last Admin: 06/13/18 02:14 Dose: 50 mg Trazodone HCl (Trazodone) 100 mg PO HS [facility] Stop: 12/13/18 21:01 Laboratory Tests 06/12/18 06/12/18 06/12/18 10:25 13:11 18:53 WBC Hgb Creatinine Troponin I 0.26 H* 0.28 H* 0.24 H* 06/13/18 06/13/18 06/13/18 00:38 00:38 00:38 WBC 16.2 H Hgb 12.7 L Creatinine 0.59 L Troponin I 0.17 H* - Imaging and Cardiology Chest Xray: report reviewed Echo: pending - EKG Interpretation EKG results cardiology: personally reviewed (ECG with ST, HR 119.), other (Telemetry reviewed with average HR previous 12 hours noted to be 99, SR. PVCs and PACs noted.) Consult Discharge Plan - Plan Referrals: Luzma Lewis DO [Resident] - <Nae Livingston - Last Filed: 06/13/18 17:50> Date of Encounter: 06/13/18 - Attending Attestation I examined this patient and my medical decision-making was reviewed with the RADIO STATION ENGINEER. I agree with the documented findings, disposition and treatment plan as described. Mr. Garcia presents with hypoxia in setting of lung cancer complicated by elevated troponin. Reports atypical chest pain. No acute ECG changes. Echo pending. Reportedly recent stress test and echo at [facility] - requesting records. Suspect demand ischemia in setting of hypoxia. Await Echo findings. Will review stress test results from [facility] when obtained. Reported small volume hemoptysis - recommend close observation while on heparin and aspirin. Likely recommend conservative management given overall comorbidities. Assessment and Plan Discussion w patient/family: The assessment and plan as outlined above was discussed with the patient and/or family members who expressed understanding and agreement. All questions were an swered. Thank you for involving us in the care of your patient. Please call with any questions. History of Present Illness History of present illness: Mr. Garcia is a 52 year old male All Systems Review: The remainder of the systems were reviewed and are negative Physical Examination Vital Signs, Last 4 Hours Temp Pulse Resp BP Pulse Ox 06/13/18 16:49 18 91 06/13/18 16:33 97.9 F 105 18 116/81 91 Results 06/13/18 00:38 06/13/18 00:38 Lab Results 06/12/18 06/13/18 06/13/18 18:53 00:38 00:38 WBC 16.2 H Hgb 12.7 L Hct 37.8 Plt Count 196 Sodium Potassium Chloride Carbon Dioxide BUN Creatinine Glucose Calcium Magnesium Troponin I 0.24 H* 0.17 H* 06/13/18 00:38 WBC Hgb Hct Plt Count Sodium 135 L Potassium 4.4 Chloride 99 Carbon Dioxide 23 BUN 21 H Creatinine 0.59 L Glucose 131 H Calcium 8.7 Magnesium 2.4 Troponin I
[2018-06-13] MEDS: Metoprolol XL (24 HR) Succ 25 MG TAB.ER.24H PO SCH (13:05)
[2018-06-13] MEDS: Azithromycin 500 MG in D5% in Water 250 ML IVPB SCH (13:06)
[2018-06-13] MEDS: *HR* LORazepam 2 MG/ML VIAL IVP PRN (14:04)
[2018-06-13] MEDS: traZODone 50 MG TABLET PO SCH (20:45)
[2018-06-13] MEDS: *HR* HYDROcodone/Acet 10/325 mg TABLET PO PRN (20:45)
[2018-06-13] MEDS ORDERED: Perflutren Lipid Microsphere 1.3 ML in 0.9 % Sodium Chloride 8.7 ML IVP ONE (21:04)
[2018-06-13] MEDS: Heparin 25,000 UNIT/500 ML D5W 25,000 UNIT/500 ML BAG IVC SCH (21:59)
[2018-06-14] MEDS: Ipratropium/Albuterol Neb 3 ML IH SCH ×6 (00:23→19:39)
[2018-06-14] MEDS: Piperacillin/Tazobactam 3.375 GM in 0.9 % Sodium Chloride Mini Bag 100 ML IVPB SCH ×3 (05:44→23:00)
[2018-06-14] MEDS: *HR* HYDROcodone/Acet 10/325 mg TABLET PO PRN (05:58)
[2018-06-14] MEDS: Budesonide/Formoterol 160/4.5 1 PUFF INH IH SCH ×2 (07:38→19:39)
[2018-06-14 07:55] LABS: BUN/Creatinine Ratio 76 (6-26); Blood Urea Nitrogen 50 mg/dL (6-20); Calcium 8.1 mg/dL (8.6-10.3); Carbon Dioxide 25 mEq/L (23-29); Chloride 104 mEq/L (98-107); Glucose 155 mg/dL (70-105); Magnesium 2.3 mg/dL (1.6-2.6); Osmolality,Calculated 298 (280-300); Potassium 4.8 mEq/L (3.5-5.1); Sodium 136 mEq/L (136-145); eGFR For Non-African Americans > 60 (> 60)
[2018-06-14] MEDS: Metoprolol XL (24 HR) Succ 25 MG TAB.ER.24H PO SCH (08:17)
[2018-06-14] MEDS: Aspirin Enteric Coated 81 MG Tablet PO SCH (08:17)
[2018-06-14] MEDS: Nicotine 21 MG PATCH.TD24 TD SCH (08:18)
[2018-06-14] MEDS: Gabapentin 300 MG CAPSULE PO SCH ×2 (08:18→20:28)
[2018-06-14] MEDS: methylPREDNISolone 125 MG/2 ML VIAL IVP SCH ×2 (08:19→16:22)
[2018-06-14 08:44] LABS: Basophils % 0.1 %; Hematocrit 26.3 % (37.5-50.1); Immature Granulocytes % 0.3 % (0-4); Lymphocytes # 0.5 K/mcL (0.6-4.6); Lymphocytes % 4.5 %; Mean Corpuscular HGB Conc 33.5 g/dL (31.6-35.5); Mean Corpuscular Hemoglobin 32.2 pg (28.0-33.3); Mean Corpuscular Volume 96.3 fL (83.0-100.0); Mean Platelet Volume 10.2 fL (9.4-12.4); Monocytes # 0.4 K/mcL (0.0-1.3); Monocytes % 3.4 %; Neutrophils # 10.2 K/mcL (1.6-8.9); Platelet Count 201 K/mcL (140-400); Red Blood Count 2.73 M/mcL (4.19-5.50); Red Cell Distribution Width 13.1 % (11.5-14.5); Segmented Neutrophils % 91.7 %
[2018-06-14 08:49] LABS: Hemoglobin 8.8 g/dL (12.9-16.9)
[2018-06-14 10:33] LABS: Adenovirus Not Detected (Not Detect); Bordetella Pertussis Not Detected (Not Detect); Chlamydophila pneumoniae Not Detected (Not Detect); Coronavirus 229E Not Detected (Not Detect); Coronavirus HKU1 Not Detected (Not Detect); Coronavirus NL63 Not Detected (Not Detect); Coronavirus OC43 Not Detected (Not Detect); Human Metapneumovirus Not Detected (Not Detect); Human Rhinovirus/Enterovirus Not Detected (Not Detect); Influenza A Subtype 2009 H1 Not Detected (Not Detect); Influenza A Untypeable Not Detected (Not Detect); Influenza B Not Detected (Not Detect); Mycoplasma pneumoniae Not Detected (Not Detect); Parainfluenza Virus 1 Not Detected (Not Detect); Parainfluenza Virus 2 Not Detected (Not Detect); Parainfluenza Virus 3 DETECTED (Not Detect); Parainfluenza Virus 4 Not Detected (Not Detect); Respiratory Syncytial Virus Not Detected (Not Detect)
--- NOTE | 2018-06-14 12:28 | Internal Med Progress Note ---
Hospitalist Progress Note - Encounter Date of Encounter: 06/14/18 Time of Encounter: 12:27 - Subjective Interval History: Still SOB, today requiring BiPAP as his sats have been persistently low, and HR staying in 110-120s. Denies CP or palpitations. No abd pain or diarhea. Denies fevers or chills prior to the last few days. - Exam Vitals: Temp Pulse Resp BP Pulse Ox 98.6 F 117 30 94/72 96 06/14/18 07:45 06/14/18 07:45 06/14/18 11:12 06/14/18 07:45 06/14/18 11:12 Exam: General: Alert and oriented, is working slightly harder to breath although this is improved with BiPAP Cardiovascular:Normal S1 & S2, No JVD. Pulse regular but tachycardic Lungs: bilateral wheezes, diminished aeration globally Abdomen:Soft, non-tender Extremities:No deformity or swelling Neurological:Normal cognition and motor skills. Non-focal - Summary of Assessment and Plan Summary of Assessment and Plan: Azam Garcia is a 52 M w hx COPD, lung cancer s/p chemorad x1 01/2018, who p/w SOB and fever, hypoxia, and positive RVP for paraflu and positive strep pneumo urine antigen, consistent with the following: Post-viral strep pneumo pneumonia: likely had paraflu and then subsequently got strep pneumo pneumonia - empiric zosyn COPD in acute exacerbation: - duonebs - prednisone - azithro - home inhalers Acute hypoxic respiratory failure: 2/2 PNA and paraflu above, requiring Bipap to maintain sats, at home is NOT on home O2 - wean O2 as able - abx as above - copd treatment as above - IS - walk test prior to discharge Cavitary lesions: hx lung cancer, upper lobe predominant emphysema, however new cavitary lesions on CT here (not present on CT here last summer, or on [facility] CT report from May) - pulm consult to determine if merits TB eval in this immunosuppressed patient Demand ischemia: 2/2 hypoxia, TTE normal, trops peaked 0.2, cardio following Hyponatremia (poa): resolved w fluids Metabolic acidosis (poa): resolved w fluids Smoker: nicotine patch offered PPx: lovenox FEN: regular Lines: PIV Consult: cardio, pulm Code: Full Dispo: needs inpatient for now, likely homegoing eventually - Time Spent with Patient Total time spent is greater than 50% in coordination of care (as documented) at patient's floor/unit and/or counseling patient: Internal Medicine: Result - Labs CBC & Chem 7: 06/14/18 08:35 06/14/18 07:18 Labs: Short CBC 06/14/18 Range/Units 08:35 WBC 11.1 (4.3-11.1) K/mcL Hgb 8.8 L D (12.9-16.9) g/dL Hct 26.3 L (37.5-50.1) % Plt Count 201 (140-400) K/mcL Neutrophils # 10.2 H (1.6-8.9) K/mcL BMP 06/14/18 07:18 Sodium 136 Potassium 4.8 Chloride 104 Carbon Dioxide 25 BUN 50 H Creatinine 0.66 L Glucose 155 H Calcium 8.1 L - ABG Interpretation ABG results: ABG ABG pH 7.32 pH Units (7.32-7.45) 06/12/18 17:04 ABG pCO2 47 mmHg (35-45) H 06/12/18 17:04 ABG pO2 114 mmHg (85-104) H 06/12/18 17:04 ABG O2 Saturation 98 % (95-98) 06/12/18 17:04 PT/INR, D-dimer PT 11.4 Seconds (9.4-12.1) 06/12/18 13:11 Consult Discharge Plan - Plan Referrals: Luzma Lewis DO [Resident] -
--- NOTE | 2018-06-14 12:35 | Cardiology Progress Note ---
Date of Encounter: 06/14/18 Assessment and Plan (1) Acute respiratory failure with hypoxia Current Visit: Yes Status: Acute Per cardiology: -Admitted with acute hypoxic respiratory failure. -?pneumonia, ATB ordered. -Known lung CA with mets, being treated with chemo and radiation -Management per primary service. (2) Elevated troponin Current Visit: Yes Status: Acute Per cardiology: -Troponins 0.26, 0.28, 0.24, 0.17 in the setting of hypoxic respiratory failure, pneumonia. -Reports atypical, pleuritic chest pain. -NO acute ischemic ECG changes. -TTE pending. -Was started on ASA, heparin per primary service. -Reports recent stress and echo at [facility]. -Of note, reports hemoptysis. Denies hemotpysis overnight. Hemoglobin stable. -Possible demand ischemia related to above. TTE pending. -Will start BB, statin. -Will obtain records from [facility]. -Monitor hemoglobin and for hemoptysis closely with ASA and heparin. Discussion w patient/family: The assessment and plan as outlined above was discussed with the patient who expressed understanding and agreement. All questions were answered. Thank you for involving us in the care of your patient. Please call with any questions. Discussed and reviewed with . Objective Vital Signs, Last 4 Hours Resp Pulse Ox 06/14/18 11:12 30 96 Results 06/14/18 08:35 06/14/18 07:18 Lab Results 06/14/18 06/14/18 07:18 08:35 WBC 11.1 Hgb 8.8 L D Hct 26.3 L Plt Count 201 Sodium 136 Potassium 4.8 Chloride 104 Carbon Dioxide 25 BUN 50 H Creatinine 0.66 L Glucose 155 H Calcium 8.1 L Magnesium 2.3 Consult Discharge Plan - Plan Referrals: Luzma Lewis DO [Resident] -
[2018-06-14] MEDS: Azithromycin 500 MG in D5% in Water 250 ML IVPB SCH (12:39)
--- NOTE | 2018-06-14 12:46 | Event Note ---
Date of Encounter: 06/14/18 Time of Encounter: 12:45 - Cardiology Event Note Mild troponin elevated in the setting of pneumonia, lung cancer. Awaiting TTE, not completed yet, and records from [facility] for further cardiology recommendations.
--- NOTE | 2018-06-14 16:36 | Pulmonology Consult Note ---
Date of Encounter: 06/15/18 Time of Encounter: 15:25 Assessment and Plan (1) Acute and chronic respiratory failure with hypoxia Current Visit: No Status: Acute Patient with advanced COPD as well as lung cancer and now with his acute illness is very concerning his condition could deteriorate and the reality palliative consultation would be recommended. At this time noninvasive ventilation is treatment of choice to help him and support his breathing, however if he remained full code and if his condition deteriorated then he will need to be on invasive mechanical ventilation. I have explained this to the family at the bedside. (2) COPD exacerbation Current Visit: Yes Status: Acute Patient presented with pneumonia and also home worsening cough is COPD with exacerbation and patient is on appropriate bronchodilator and to keep his oxygen saturation around 90% with the use of high flow oxygen and also noninvasive ventilation. Unfortunately overall prognosis is poor and with his history of tobacco abuse I expect his lung disease probably is more advanced and he will also need systemic steroid. (3) Pneumonia Current Visit: Yes Status: Acute Patient has evidence of a strep pneumonia as well as his for parainfluenza is positive. He is abnormal findings on the CT chest with cavitary lesion, I believe we have enough evidence with his positive testing this could be pneumonia and special he with his emphysema sometimes infection of the emphysematous bullae can shows as TB cavitary lesion, however with his immune compromised status it will be difficult to completely rule out TB and for that reason I have told nurse if he has any sputum production then to send it for AFB smear. Qualifiers: Pneumonia type: due to group B Streptococcus Laterality: unspecified laterality Lung location: unspecified part of lung Qualified Code(s): J15.3 - Pneumonia due to streptococcus, group B History of Present Illness Consult date: 06/14/18 Requesting physician: Gopal Blackburn Reason for consult: dyspnea, pneumonia, abnormal CXR/CT Chief complaint: Dyspnea History of present illness: This is a 52-year-old male with multiple medical problems and is known to me and he has adenosis of lung cancer with treatment with the chemotherapy and radiation therapy and he also has advanced COPD with tobacco abuse. Patient presented complaining of shortness of breath and coughing which is mostly dry in nature and denies any hemoptysis with wheezing since past Tuesday. Patient was diagnosed with pneumonia and positive for viral and bacterial testing. Patient dyspnea has deteriorated and he called EMS to bring him to the hospital. Patient was found to be hypoxic and he needs to be on high flow oxygen and noninvasive ventilation for his comfort and dyspnea. Patient overall is poor historian and some history was taken from the at the bedside. As I said patient is poor historian and it is not clear to me about his previous risks for TB such as travel or incarceration. There is no history of contact with patient with active TB. Past Med Surg Social Fam HX - Past Medical History Medical history: cancer, COPD Additional medical history: lung cancer Psychiatric history: no psych history - Past Surgical History Surgical History: orthopedic, other Additional surgical history: 2 left shoulder surgeries - left CTR - colonoscopy - Social History Smoking Status: Light tobacco smoker Packs per day: 1/4 pack per day Smokeless Tobacco Status: No Alcohol use: none Drug use: none - Family History Father Name: Zen Garcia Living Status: Age at : 58 Cause of : Lung cancer Hx Family Cancer: Yes Mother Adopted: Yes Name: Lana Garcia Living Status: Age at : 89 Cause of : Old age Medications and Allergies RX: Aclidinium [place] [Tudorza Pressair] 400 mcg IH BID 02/24/16 [History] RX: Albuterol Sulfate [Proair Hfa] 2 puff IH Q4H PRN 02/24/16 [History] RX: Budesonide/Formoterol 160/4.5 [Symbicort 160/4.5] 2 puff IH BIDR 02/24/16 [History] RX: Cyclobenzaprine HCl 5 mg PO BID 02/24/16 [History] RX: Gabapentin [Neurontin] 300 mg PO BID 02/24/16 [History] Hydrocodone/Acetaminophen [[place] 10-325 Tablet] 1 each PO BID PRN 06/12/18 [History] RX: traZODone [TraZODone] 100 mg PO HS 06/12/18 [History] Allergy/AdvReac Type Severity Reaction Status Date / Time tapentadol [From Nucynta] Allergy Difficulty Verified 06/12/18 09:39 Breathing doxycycline AdvReac Irritable Verified 06/12/18 09:39 levofloxacin [From Levaquin] AdvReac Irritable Verified 09/28/17 09:47 All Systems: The remainder of the systems were reviewed and are negative Physical Examination Vital Signs: Vital Signs, Last 4 Hours Temp Pulse Resp BP Pulse Ox 06/14/18 16:17 98.2 F 122 20 99/76 100 06/14/18 15:44 37 90 06/14/18 12:45 119 20 114/67 94 General: Patient is in no acute distress. HEENT: Normocephalic atraumatic, pupils are equal round and reactive to light and accommodation, anicteric sclera, nares is patent, mucous membranes moist, no JVD, trachea is midline Cardiovascular: Normal sinus rhythm, S1 and S2 audible, no murmur or rubs Respiratory: Diminished and wheezing to auscultation bilaterally. Moderate respiratory distress. wheezing. Patient using accessory muscles. Abdomen: Soft, nontender, nondistended, positive bowel sounds in all 4 quadrants Extremities: Warm, dry, trace lower extremity edema. Normal capillary refill. Neuro: Alert and oriented and follows commands. Grossly no neuro deficits. Skin: Warm to touch : No obvious abnormalities. Psych: Anxious Results - Laboratory Findings CBC and BMP: 06/15/18 04:48 06/15/18 04:48 ABG ABG pH 7.32 pH Units (7.32-7.45) 06/12/18 17:04 ABG pCO2 47 mmHg (35-45) H 06/12/18 17:04 ABG pO2 114 mmHg (85-104) H 06/12/18 17:04 ABG O2 Saturation 98 % (95-98) 06/12/18 17:04 PT/INR, D-dimer PT 11.4 Seconds (9.4-12.1) 06/12/18 13:11 Abnormal lab findings: Abnormal lab results RBC 2.73 M/mcL (4.19-5.50) L 06/14/18 08:35 Hgb 8.8 g/dL (12.9-16.9) L D 06/14/18 08:35 Hct 26.3 % (37.5-50.1) L 06/14/18 08:35 Neutrophils # 10.2 K/mcL (1.6-8.9) H 06/14/18 08:35 Lymphocytes # 0.5 K/mcL (0.6-4.6) L 06/14/18 08:35 ABG pCO2 47 mmHg (35-45) H 06/12/18 17:04 ABG pO2 114 mmHg (85-104) H 06/12/18 17:04 BUN 50 mg/dL (6-20) H 06/14/18 07:18 Creatinine 0.66 mg/dL (0.70-1.30) L 06/14/18 07:18 BUN/Creatinine Ratio 76 (6-26) H 06/14/18 07:18 Glucose 155 mg/dL (70-105) H 06/14/18 07:18 Hemoglobin A1c 6.1 % (-5.6) H 06/13/18 09:05 Calcium 8.1 mg/dL (8.6-10.3) L 06/14/18 07:18 Phosphorus 2.2 mg/dL (2.7-4.5) L 06/13/18 00:38 Troponin I 0.17 ng/mL (< 0.04) H* 06/13/18 00:38 Parainfluenza 3 (PCR) DETECTED (Not Detect) A 06/14/18 08:46 - Microbiology Findings Microbiology Findings: Microbiology, Last 48 Hours 06/14/18 10:30 Legionella Antigen - Final Urine,Clean Catch Streptococcus pneumoniae Antigen (M - Final 06/12/18 10:25 Blood Culture - Preliminary Peripheral Venipuncture Culture is incubating and being continuously m onitored for growth. Final report to follow. 06/12/18 10:20 Blood Culture - Preliminary Peripheral Venipuncture Culture is incubating and being continuously monitored for growth. Final report to follow. - Diagnostic Findings CT scan - chest: report reviewed, image reviewed - Clinical Findings Intake & Output: Intake & Output 06/14/18 06/14/18 06/14/18 07:59 15:59 23:59 Intake Total 152 / 152 100 / 100 Balance 152 / 152 100 / 100 Weight 65.8 kg Consult Discharge Plan - Plan Referrals: Luzma Lewis DO [Resident] -
[2018-06-14] MEDS: traZODone 50 MG TABLET PO SCH (20:28)
[2018-06-15] MEDS: Ipratropium/Albuterol Neb 3 ML IH SCH ×2 (00:13→04:18)
[2018-06-15] MEDS: methylPREDNISolone 125 MG/2 ML VIAL IVP SCH ×3 (00:21→15:08)
[2018-06-15] MEDS: *HR* LORazepam 2 MG/ML VIAL IVP PRN (03:22)
[2018-06-15] MEDS ORDERED: *HR* Metoprolol 5 MG/5 ML VIAL IVP ONE (03:50)
[2018-06-15] MEDS ORDERED: *HR* Metoprolol 5 MG/5 ML VIAL IVP SCH (04:00)
[2018-06-15] MEDS ORDERED: 0.9 % Sodium Chloride 1,000 ML IVC ONE (04:17)
[2018-06-15] MEDS ORDERED: 0.9 % Sodium Chloride 500 ML IVC SCH (04:30)
[2018-06-15] MEDS: Levalbuterol Neb 1.25 MG/3 ML IH SCH ×5 (04:58→20:13)
[2018-06-15] MEDS: Ipratropium Neb 0.5 MG NEBULIZER IH SCH ×5 (04:58→20:13)
[2018-06-15 05:00] LABS: Hematocrit 18.9 % (37.5-50.1); Mean Corpuscular HGB Conc 33.9 g/dL (31.6-35.5); Mean Corpuscular Hemoglobin 32.3 pg (28.0-33.3); Mean Corpuscular Volume 95.5 fL (83.0-100.0); Mean Platelet Volume 10.1 fL (9.4-12.4); Platelet Count 171 K/mcL (140-400); Red Blood Count 1.98 M/mcL (4.19-5.50); Red Cell Distribution Width 13.2 % (11.5-14.5)
[2018-06-15 05:01] LABS: Hemoglobin 6.4 g/dL (12.9-16.9)
[2018-06-15 05:22] LABS: BUN/Creatinine Ratio 67 (6-26); Blood Urea Nitrogen 39 mg/dL (6-20); Calcium 7.7 mg/dL (8.6-10.3); Carbon Dioxide 31 mEq/L (23-29); Chloride 104 mEq/L (98-107); Glucose 145 mg/dL (70-105); Magnesium 2.4 mg/dL (1.6-2.6); Osmolality,Calculated 304 (280-300); Potassium 5.1 mEq/L (3.5-5.1); Sodium 141 mEq/L (136-145); eGFR For Non-African Americans > 60 (> 60)
[2018-06-15] MEDS ORDERED: 0.9 % Sodium Chloride 250 ML ONE ×3 (05:59→15:03)
[2018-06-15] MEDS ORDERED: *HR* Enoxaparin 40 MG/0.4 ML SYRINGE SQ SCH (06:00)
[2018-06-15] MEDS: Piperacillin/Tazobactam 3.375 GM in 0.9 % Sodium Chloride Mini Bag 100 ML IVPB SCH (06:03)
--- NOTE | 2018-06-15 06:37 | Event Note ---
Date of Encounter: 06/15/18 Time of Encounter: 03:35 I was notified ~0330 that his HR had increased to the 140's-150's and appeared to be Afib on tele. An EKG was obtained showing Afib RVR with vrate of 158. He does not have a hx of Afib as I could tell in his medical records. He had no complaints of diplopia, blurry vision, dizziness/lightheadedness, diaphoresis, chest pain different from pain he has had since admission, dyspnea different or worse from dyspnea he has had since admission, feeling of impending syncope or syncope. He did however feel palpitations and his rate being elevated. I initially had his nurse get IV metoprolol but while cycling his BP he dropped to 90/60 and instead gave 15mg IV diltiazem bolus. This along with 500ml IVF bolus marginally improved his HR to 130-140's. At this time a diltiazem infusion was started to titrate to goal HR <100. He currently has a TTE ordered from yesterday and cardiology is already following his case for the elevated troponin. Most recent electrolytes at the time were largely wnl and will obtain additional CBC, BMP, Mg, TSH and I placed him NPO incase cardiology would plan for possible cardioversion today given new onset afib.
[2018-06-15 07:45] LABS: Thyroid Stimulating Hormone 0.849 mcIU/mL (0.340-5.600)
[2018-06-15] MEDS: Gabapentin 300 MG CAPSULE PO SCH ×2 (07:58→20:30)
[2018-06-15] MEDS: Aspirin Enteric Coated 81 MG Tablet PO SCH (07:58)
[2018-06-15] MEDS: Nicotine 21 MG PATCH.TD24 TD SCH (07:58)
[2018-06-15] MEDS: Metoprolol XL (24 HR) Succ 25 MG TAB.ER.24H PO SCH ×2 (07:58→20:30)
[2018-06-15] MEDS: Budesonide/Formoterol 160/4.5 1 PUFF INH IH SCH ×2 (08:13→21:59)
--- NOTE | 2018-06-15 08:39 | Pulmonology Progress Note ---
Date of Encounter: 06/15/18 Time of Encounter: 08:39 Assessment and Plan (1) Acute and chronic respiratory failure with hypoxia Current Visit: No Status: Acute MR Garcia is a 52-year-old gentle a past medical history of COPD and lung cancer status post chemoradiation he presented with acute hypoxic respiratory failure secondary to pneumonia complicated by COPD exacerbation pneumonia likely mediated by viral infectious process noted to have 2 cavitary lesions which are concerning for infectious versus malignancy. Now with A. fib and RVR and acute anemia. Recs: -Agree with BiPAP for work of breathing I suspect as respiratory symptoms improved that A. fib is also likely to improve. -Agree with continuation of IV steroids today and bronchodilators including scheduled Symbicort -He is on broad-spectrum antibiotics which I would continue today including the beta lactam and macrolide (for atypical and antiinflammatory properties) - he will need repeat his CT scan that demonstrated resolution in 4-6 weeks -Concerning development of acute anemia hemoglobin was around 12-13 on admission and now is 6.4 unclear if this represents blood loss or marrow suppression or some combination of the 2 recommended the very least repeating a hemoglobin at this time an urgent basis and he will likely need transfusion of packed red blood cells because of acute drop in the context of A. fib with RVR. Would likely air on the side of holding of chemical DVT prophylaxis at this time in lieu of mechanical DVT prophylaxis. Rest of the evaluation per primary service -Management of supraventricular tachyarrhythmia per cardiology service echocardiogram pending. Do not hesitate to call me with any questions or concerns Josiah Blake [phone] (2) Atrial fibrillation with RVR Current Visit: Yes Status: Acute (3) Acute anemia Current Visit: Yes Status: Acute (4) COPD exacerbation Current Visit: Yes Status: Acute (5) Pneumonia Current Visit: Yes Status: Acute Qualifiers: Pneumonia type: due to group B Streptococcus Laterality: unspecified laterality Lung location: unspecified part of lung Qualified Code(s): J15.3 - Pneumonia due to streptococcus, group B Subjective Principal diagnosis: Pneumonia Interval history: OVernight patient had Afib with RVR remains in RVR today. More dyspneic and was placed on BiPAP he says he is comfortable right now blood pressure has been on the lower side typically map greater than 60 but systolics have been in the high 80s to low 100s.. Oxygen saturation is been of 90% on 4 L and 100% on BiPAP BiPAP has been instituted because of work of breathing and hypoxia. Objective PUL Vital signs: Last Vital Signs Temp 97.7 F 06/15/18 07:31 Pulse 125 06/15/18 07:31 Resp 24 06/15/18 08:23 BP 100/74 06/15/18 07:31 Pulse Ox 96 06/15/18 08:23 General appearance: no acute distress Neck: supple Effort: mildly labored Auscultation: bilateral: wheezes, rales Cardiovascular: irregular rhythm Gastrointestinal: normoactive bowel sounds, soft, non-tender Extremities: no cyanosis, no edema, no clubbing Musculoskeletal: no deformities normal mental status, non-focal exam mood appropriate Results - Laboratory Findings CBC and BMP: 06/15/18 04:48 06/15/18 04:48 ABG ABG pH 7.32 pH Units (7.32-7.45) 06/12/18 17:04 ABG pCO2 47 mmHg (35-45) H 06/12/18 17:04 ABG pO2 114 mmHg (85-104) H 06/12/18 17:04 ABG O2 Saturation 98 % (95-98) 06/12/18 17:04 PT/INR, D-dimer PT 11.4 Seconds (9.4-12.1) 06/12/18 13:11 Abnormal lab findings: Abnormal lab results RBC 1.98 M/mcL (4.19-5.50) L 06/15/18 04:48 Hgb 6.4 g/dL (12.9-16.9) L D 06/15/18 04:48 Hct 18.9 % (37.5-50.1) L 06/15/18 04:48 Neutrophils # 10.2 K/mcL (1.6-8.9) H 06/14/18 08:35 Lymphocytes # 0.5 K/mcL (0.6-4.6) L 06/14/18 08:35 ABG pCO2 47 mmHg (35-45) H 06/12/18 17:04 ABG pO2 114 mmHg (85-104) H 06/12/18 17:04 Carbon Dioxide 31 mEq/L (23-29) H 06/15/18 04:48 BUN 39 mg/dL (6-20) H 06/15/18 04:48 Creatinine 0.58 mg/dL (0.70-1.30) L 06/15/18 04:48 BUN/Creatinine Ratio 67 (6-26) H 06/15/18 04:48 Glucose 145 mg/dL (70-105) H 06/15/18 04:48 Hemoglobin A1c 6.1 % (-5.6) H 06/13/18 09:05 Calculated Osmolality 304 (280-300) H 06/15/18 04:48 Calcium 7.7 mg/dL (8.6-10.3) L 06/15/18 04:48 Phosphorus 2.2 mg/dL (2.7-4.5) L 06/13/18 00:38 Troponin I 0.17 ng/mL (< 0.04) H* 06/13/18 00:38 Parainfluenza 3 (PCR) DETECTED (Not Detect) A 06/14/18 08:46 - Microbiology Findings Microbiology Findings: Microbiology, Last 48 Hours 06/14/18 10:30 Legionella Antigen - Final Urine,Clean Catch Streptococcus pneumoniae Antigen (M - Final - Diagnostic Findings CT scan - chest: report reviewed, image reviewed - Clinical Findings Intake & Output: Intake & Output 06/14/18 06/15/18 06/15/18 23:59 07:59 15:59 Intake Total 100 / 100 107 / 107 Output Total 0 / 0 300 / 300 Balance 100 / 100 -193 / -193 Weight 65.2 kg Consult Discharge Plan - Plan Referrals: Luzma Lewis DO [Resident] -
[2018-06-15 10:27] LABS: Hematocrit 19.7 % (37.5-50.1); Hemoglobin 6.6 g/dL (12.9-16.9)
[2018-06-15] MEDS: Azithromycin 500 MG in D5% in Water 250 ML IVPB SCH (13:04)
--- NOTE | 2018-06-15 13:24 | Internal Med Progress Note ---
Hospitalist Progress Note - Encounter Date of Encounter: 06/15/18 Time of Encounter: 13:19 - Subjective Interval History: Less SOB today and only using BiPAP to ease work of breathing, made it overnight on nonrebreather. Did flip into A-Fib RVR but did not feel palpitations, and tolerating diltiazem gtt well. Does state that he's had loose stools yesterday and today, and upon further questioning, thinks his stool was dark red or black. - Exam Vitals: Temp Pulse Resp BP Pulse Ox 97.7 F 104 20 100/64 100 06/15/18 12:23 06/15/18 12:23 06/15/18 12:23 06/15/18 12:23 06/15/18 12:23 Exam: General: Alert and oriented, normal work of breathing while on BiPAP Cardiovascular:Normal S1 & S2, No JVD. Pulse regular but tachycardic Lungs: bilateral wheezes, diminished aeration globally Abdomen:Soft, non-tender Extremities:No deformity or swelling Neurological:Normal cognition and motor skills. Non-focal - Summary of Assessment and Plan Summary of Assessment and Plan: Azam Garcia is a 52 M w hx COPD, lung cancer s/p chemorad x1 01/2018, who p/w SOB and fever, hypoxia, and positive RVP for paraflu and positive strep pneumo urine antigen, consistent with the following: Acute anemia: concern for blood loss given report of maroon loose stools, Hb 13 on admit, today 6s and stat repeat confirmed value - T&C - transfuse 2 units - holding lovenox ppx - start PPI iv bid - decrease steroids as below - GI consult A-Fib RVR: likely stress of respiratory infxn and acute anemia - rate controlled this AM on diltiazem gtt, will wean - if pressures tolerate (they are good today), will start Cardizem 30 q6h po Post-viral strep pneumo pneumonia: likely had paraflu and then subsequently got strep pneumo pneumonia, resp symptoms today slightly improving - de-escalate to Rocephin from zosyn COPD in acute exacerbation: - duonebs - stop solumedrol and start prednisone 60 daily - azithro - home inhalers Acute hypoxic respiratory failure: 2/2 PNA and paraflu above, requiring Bipap to maintain sats, at home is NOT on home O2 - wean O2 as able - abx as above - copd treatment as above - IS - walk test prior to discharge Cavitary lesions: hx lung cancer, upper lobe predominant emphysema, however new cavitary lesions on CT here (not present on CT here last summer, or on [facility] CT report from May) - pulm consult, appreciate rec's, unlikely TB in context of upper lobe predominant emphysema with superimposed infection Demand ischemia: 2/2 hypoxia, TTE normal, trops peaked 0.2, cardio following Smoker: nicotine patch offered PPx: SCDs FEN: regular Lines: PIV Consult: cardio, pulm, GI Code: Full Dispo: needs inpatient for now, likely homegoing eventually - Time Spent with Patient Total time spent is greater than 50% in coordination of care (as documented) at patient's floor/unit and/or counseling patient: Internal Medicine: Result - Labs CBC & Chem 7: 06/15/18 10:04 06/15/18 04:48 Labs: Short CBC 06/15/18 06/15/18 Range/Units 04:48 10:04 WBC 9.7 (4.3-11.1) K/mcL Hgb 6.4 L D 6.6 L (12.9-16.9) g/dL Hct 18.9 L 19.7 L (37.5-50.1) % Plt Count 171 (140-400) K/mcL BMP 06/15/18 04:48 Sodium 141 Potassium 5.1 Chloride 104 Carbon Dioxide 31 H BUN 39 H Creatinine 0.58 L Glucose 145 H Calcium 7.7 L - ABG Interpretation ABG results: ABG ABG pH 7.32 pH Units (7.32-7.45) 06/12/18 17:04 ABG pCO2 47 mmHg (35-45) H 06/12/18 17:04 ABG pO2 114 mmHg (85-104) H 06/12/18 17:04 ABG O2 Saturation 98 % (95-98) 06/12/18 17:04 PT/INR, D-dimer PT 11.4 Seconds (9.4-12.1) 06/12/18 13:11 Consult Discharge Plan - Plan Referrals: Luzma Lewis DO [Resident] -
[2018-06-15] MEDS ORDERED: Pantoprazole 40 MG VIAL IVP SCH (13:30)
[2018-06-15 13:48] LABS: Retculocyte # 0.02 M/mcL (0.05-0.10); Reticulocyte % 0.8 % (1.6-2.8)
[2018-06-15 14:08] LABS: Alanine Aminotransferase 18 Units/L (7-52); Albumin 3.1 g/dL (3.5-5.7); Albumin/Globulin Ratio 1.5 (1.1-2.2); Alkaline Phosphatase 42 Units/L (34-104); Aspartate Amino Transferase 25 Units/L (13-39); Bilirubin,Indirect 0.2 mg/dL (0.0-1.2); Bilirubin,Total 0.2 mg/dL (0.3-1.0); Globulin 2.1 g/dL (2.4-3.5); Total Protein 5.2 g/dL (6.4-8.9)
[2018-06-15] MEDS ORDERED: Furosemide 40 MG/4 ML VIAL IVP ONE (15:00)
[2018-06-15] MEDS: Pantoprazole 40 MG in 0.9 % Sodium Chloride Mini Bag 100 ML IVC SCH ×2 (15:08→20:32)
[2018-06-15] MEDS: cefTRIAXone 2,000 MG in Water for inj. (sterile) 20 ML 20 ML IVP SCH (15:09)
--- NOTE | 2018-06-15 15:48 | Cardiology Progress Note ---
Date of Encounter: 06/15/18 Time of Encounter: 15:46 Assessment and Plan (1) Elevated troponin Current Visit: Yes Status: Acute -Troponins 0.26, 0.28, 0.24, 0.17 in the setting of hypoxic respiratory failure, pneumonia. -Reports atypical, pleuritic chest pain ongoing for years. -NO acute ischemic ECG changes. -TTE pending. -Was started on ASA, heparin per primary service. Heparin stopped due to acute anemia. -Of note, reports hemoptysis previously. Denies hemotpysis overnight. -Reports recent stress and echo at [facility]. -Possible demand ischemia related to above. TTE pending. -Continue BB, statin. -Will obtain records from [facility]. -Monitor hemoglobin and for hemoptysis closely with ASA. No heparin. Hgb 6.6. (2) Atrial fibrillation with RVR Current Visit: Yes Status: Acute Atrial fibrillation with RVR overnight. Appears to be NSR-ST at this time. No AC due to acute anemia on heparin gtt. Increase bb as tolerated. (3) Chest pain Current Visit: No Status: Acute Atypical pleuritic chest pain. Symptoms ongoing for over a year. See plan above. Echo pending. Qualifiers: Chest pain type: chest pain on breathing Qualified Code(s): R07.1 - Chest pain on breathing (4) Acute respiratory failure with hypoxia Current Visit: Yes Status: Acute -Admitted with acute hypoxic respiratory failure. -?pneumonia, ATB ordered. -Known lung CA with mets s/p treatment with chemo and radiation and pending more treatment. -Management per primary service. Discussion w patient/family: The assessment and plan as outlined above was discussed with the patient and/or family members who expressed understanding and agreement. All questions were answered. Thank you for involving us in the care of your patient. Please call with any questions. Subjective Principal diagnosis: Pneumonia Interval history: Mr. Garcia is siting on side of bed. Admits to chest pain that is chronic and occurs with cough or movement. Continues to have SOB and cough. Objective Vital Signs, Last 4 Hours Temp Pulse Resp BP Pulse Ox 06/15/18 12:23 97.7 F 104 20 100/64 100 06/15/18 12:08 98.2 F 101 18 101/66 95 General: Conversant, No Apparent Distress HEENT: Atraumatic, Normocephaly, Mucus Membranes Moist Neck: No JVD, Normal carotid pulses Cardiac: Reg Rate and Rhythm, Normal S1 and S2, No Murmur Lungs: Other (Respirations labored at rest. Rhonci scattered throughout ) Neuro: Alert and responsive, No focal deficits noted Abdomen: Soft, Non-Tender Skin: No rashes noted on visualized skin Musculoskeletal: No Chest Wall Tenderness Extremities: No Clubbing, No Cyanosis, No Edema, Normal Pulses Results 06/15/18 10:04 06/15/18 04:48 Lab Results 06/15/18 06/15/18 06/15/18 04:48 04:48 10:04 WBC 9.7 Hgb 6.4 L D 6.6 L Hct 18.9 L 19.7 L Plt Count 171 Sodium 141 Potassium 5.1 Chloride 104 Carbon Dioxide 31 H BUN 39 H Creatinine 0.58 L Glucose 145 H Calcium 7.7 L Magnesium 2.4 Total Bilirubin 0.2 L AST 25 ALT 18 Alkaline Phosphatase 42 TSH 0.849 - Imaging and Cardiology Echo: pending - EKG Interpretation EKG results cardiology: personally reviewed Consult Discharge Plan - Plan Referrals: Luzma Lewis DO [Resident] -
--- NOTE | 2018-06-15 17:17 | Anesthesia Evaluation PreOp ---
Date of Encounter: 06/15/18 Time of Encounter: 17:14 - Past History Planned Operation: EGD Cardiac History: Arrhythmia (AFib Hx RVR,) Pulmonary History: Smoker, COPD, Other (Lung CA) Other Medical History: Denies Any Significant HX, Other (GI Bleed - Transfused with 2 units PRBC) Alcohol Use: none Drug use: none Medications and Allergies Aclidinium [place] [Tudorza Pressair] 400 mcg IH BID 02/24/16 [History] Albuterol Sulfate [Proair Hfa] 2 puff IH Q4H PRN 02/24/16 [History] Budesonide/Formoterol 160/4.5 [Symbicort 160/4.5] 2 puff IH BIDR 02/24/16 [History] Cyclobenzaprine HCl 5 mg PO BID 02/24/16 [History] Gabapentin [Neurontin] 300 mg PO BID 02/24/16 [History] Hydrocodone/Acetaminophen [[place] 10-325 Tablet] 1 each PO BID PRN 06/12/18 [History] traZODone [TraZODone] 100 mg PO HS 06/12/18 [History] Allergy/AdvReac Type Severity Reaction Status Date / Time tapentadol [From Nucynta] Allergy Difficulty Verified 06/12/18 09:39 Breathing doxycycline AdvReac Irritable Verified 06/12/18 09:39 levofloxacin [From Levaquin] AdvReac Irritable Verified 09/28/17 09:47 - Meds/Allergy Pre-op Review Medications Reviewed: Yes Allergies Reviewed: Yes Anesthesia Results - Labs 06/15/18 10:04 06/15/18 04:48 - Imaging Additional studies: [id number]^ProVation^FT^PDF EV/EV echocardiogram Impressions: Technically challenging due to clinical status - patient dyspneic during exam. Sinus tachycardia low 100's. Grossly, LV systolic function may be normal but is not well quantified due to respiratory variation and tachycardia. Atypical septal motion. Indeterminate diastolic function. Normal right ventricular structure and function. No significant valvular dysfunction. No pulmonary hypertension. Recommend repeat study when clinical status improves. 02/10/15 EF-57% No Ischemia Anesthesia Exam Vital Signs/O2 Sat, Most Current Temp Pulse Resp BP Pulse Ox 98.2 F 121 18 121/82 94 06/15/18 17:25 06/15/18 17:25 06/15/18 17:25 06/15/18 17:25 06/15/18 17:25 NPO (# of Hours): Ate at - HEENT Pupil (Motor): Pupils equal, EOMI Mallampati: II Teeth: Edentulous Oral Opening: Greater than 3 - OFFICE SERVICES REPRESENTATIVE LOC: Oriented OFFICE SERVICES REPRESENTATIVE Motor: Normal RUE, Normal LUE, Normal RLE, Normal LLE, Normal Face OFFICE SERVICES REPRESENTATIVE Sensory: Normal: RUE, LUE, RLE, LLE, Face - Cardiac Rhythm: Regular Murmur: None JVD: No Carotid Bruit: No - Pulmonary Breath Sounds: bilateral Clear Respiratory Effort: Symmetrical Anesthesia Assess/Plan ASA Score: 4 Level of consciousness: Cooperative Anesthetic Plan: MAC Autologous Blood: Yes Monitoring Plan: Standard Monitors Recovery Plan: Other
[2018-06-15] MEDS ORDERED: *HR* Propofol 200 MG/20 ML VIAL IVP ONE (18:11)
[2018-06-15] MEDS ORDERED: Lidocaine -MPF 2% 2 ML VIAL ONE (18:41)
--- NOTE | 2018-06-15 20:23 | Electrocardiograph Report ---
[place] [id number] Test Date: 2018-06-15 Pat Name: Azam Garcia Department: 111 Room: 2N08 Gender: M Cost Accounting Clerk: : 1965 Requested By: Gopal Blackburn Order Number: [id number] Reading MD: Nae Livingston Measurements Intervals [place] Rate: 97 P: 60 MI: 144 QRS: 58 QRSD: 84 T: 28 QT: 324 QTc: 378 Interpretive Statements SINUS RHYTHM LOW QRS VOLTAGE IN EXTREMITY LEADS Electronically Signed On 06-15-2018 20:21:41 EST by Nae Livingston
[2018-06-15] MEDS: traZODone 50 MG TABLET PO SCH (20:30)
--- NOTE | 2018-06-15 20:44 | Electrocardiograph Report ---
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
[2018-06-15 21:54] LABS: Hematocrit 28.9 % (37.5-50.1)
[2018-06-15 21:57] LABS: Hemoglobin 9.6 g/dL (12.9-16.9)
[2018-06-16] MEDS: Ipratropium Neb 0.5 MG NEBULIZER IH SCH ×7 (00:04→23:53)
[2018-06-16] MEDS: Levalbuterol Neb 1.25 MG/3 ML IH SCH ×7 (00:04→23:53)
[2018-06-16 04:12] LABS: Hemoglobin 8.4 g/dL (12.9-16.9); Mean Corpuscular HGB Conc 33.6 g/dL (31.6-35.5); Mean Corpuscular Hemoglobin 31.1 pg (28.0-33.3); Mean Corpuscular Volume 92.6 fL (83.0-100.0); Platelet Count 204 K/mcL (140-400); Red Cell Distribution Width 15.3 % (11.5-14.5)
[2018-06-16 04:31] LABS: BUN/Creatinine Ratio 46 (6-26); Blood Urea Nitrogen 26 mg/dL (6-20); Calcium 8.1 mg/dL (8.6-10.3); Carbon Dioxide 34 mEq/L (23-29); Chloride 101 mEq/L (98-107); Glucose 134 mg/dL (70-105); Magnesium 2.4 mg/dL (1.6-2.6); Osmolality,Calculated 299 (280-300); Potassium 4.4 mEq/L (3.5-5.1); Sodium 141 mEq/L (136-145); eGFR For Non-African Americans > 60 (> 60)
[2018-06-16] MEDS: Pantoprazole 40 MG in 0.9 % Sodium Chloride Mini Bag 100 ML IVC SCH ×5 (06:15→20:19)
--- NOTE | 2018-06-16 06:46 | Pulmonology Progress Note ---
Date of Encounter: 06/16/18 Time of Encounter: 06:46 Assessment and Plan (1) Acute and chronic respiratory failure with hypoxia Current Visit: No Status: Acute MR Garcia is a 52-year-old gentle a past medical history of COPD and lung cancer status post chemoradiation he presented with acute hypoxic respiratory failure secondary to pneumonia complicated by COPD exacerbation pneumonia likely mediated by viral infectious process noted to have 2 cavitary lesions which are concerning for infectious versus malignancy. Now with A. fib and RVR and acute anemia of unclear etiology Recs: -Okay to continue BiPAP for work of breathing as needed his been tolerating several hours in a row without its use which is encouraging he will need to have supplemental oxygen to keep saturation greater than 88% around 92% -Continuation of antibiotics he is strep pneumonia a positive carotid to de- escalate to cephalosporin given cardiac issues would also recommend stopping azithromycin. He will need to complete 7-10 day course of antibiotics -IV steroids today evaluate on a daily basis I suspect or I can be transitioned to by mouth prednisone to complete a two-week taper -Repeat CT scan in 4-6 weeks this is likely best done with his primary oncologist follow-up on these cavitary lung lesions which may be infectious or neoplastic -Continue schedule bronchodilators and Symbicort -Management of anemia and atrial fibrillation per primary medicine service appreciate cardiology and gastroenterology evaluation as well Pulmonary will sign off Do not hesitate to call me with any questions or concerns Josiah Blake [phone] (2) Atrial fibrillation with RVR Current Visit: Yes Status: Acute (3) Acute anemia Current Visit: Yes Status: Acute (4) COPD exacerbation Current Visit: Yes Status: Acute (5) Pneumonia Current Visit: Yes Status: Acute Qualifiers: Pneumonia type: due to group B Streptococcus Laterality: unspecified laterality Lung location: unspecified part of lung Qualified Code(s): J15.3 - Pneumonia due to streptococcus, group B Subjective Principal diagnosis: Pneumonia Interval history: Which transfusion and blood products and transferred to the stepdown unit yesterday has been hemodynamically stable today status post endoscopy results pending respiratory salter he says that breathing is still labored but now is off BiPAP and is conversational although clearly dyspneic. Heart rate is better controlled today as well. He denies any hemoptysis Objective PUL Vital signs: Last Vital Signs Temp 97.9 F 06/16/18 02:13 Pulse 100 06/16/18 02:13 Resp 18 06/16/18 03:58 BP 123/83 06/16/18 02:13 Pulse Ox 96 06/16/18 03:58 General appearance: no acute distress, other (Pale-appearing) ENT: oropharynx moist Neck: supple Effort: mildly labored Auscultation: bilateral: diminished breath sounds, wheezes Cardiovascular: irregular rhythm Gastrointestinal: normoactive bowel sounds, soft, non-tender Integumentary: normal Extremities: no cyanosis, no edema, no clubbing Musculoskeletal: no deformities normal mental status, non-focal exam mood appropriate Results - Laboratory Findings CBC and BMP: 06/16/18 03:48 06/16/18 03:48 ABG ABG pH 7.32 pH Units (7.32-7.45) 06/12/18 17:04 ABG pCO2 47 mmHg (35-45) H 06/12/18 17:04 ABG pO2 114 mmHg (85-104) H 06/12/18 17:04 ABG O2 Saturation 98 % (95-98) 06/12/18 17:04 PT/INR, D-dimer PT 11.4 Seconds (9.4-12.1) 06/12/18 13:11 Abnormal lab findings: Abnormal lab results WBC 13.7 K/mcL (4.3-11.1) H 06/16/18 03:48 RBC 2.70 M/mcL (4.19-5.50) L 06/16/18 03:48 Hgb 8.4 g/dL (12.9-16.9) L 06/16/18 03:48 Hct 25.0 % (37.5-50.1) L 06/16/18 03:48 RDW 15.3 % (11.5-14.5) H 06/16/18 03:48 Reticulocyte # 0.02 M/mcL (0.05-0.10) L 06/15/18 04:48 Neutrophils # 10.2 K/mcL (1.6-8.9) H 06/14/18 08:35 Lymphocytes # 0.5 K/mcL (0.6-4.6) L 06/14/18 08:35 Percent Retic 0.8 % (1.6-2.8) L 06/15/18 04:48 Retic Hgb Equivalent 27.3 pg (28.61-36.33) L 06/15/18 04:48 ABG pCO2 47 mmHg (35-45) H 06/12/18 17:04 ABG pO2 114 mmHg (85-104) H 06/12/18 17:04 Carbon Dioxide 34 mEq/L (23-29) H 06/16/18 03:48 BUN 26 mg/dL (6-20) H 06/16/18 03:48 Creatinine 0.56 mg/dL (0.70-1.30) L 06/16/18 03:48 BUN/Creatinine Ratio 46 (6-26) H 06/16/18 03:48 Glucose 134 mg/dL (70-105) H 06/16/18 03:48 Hemoglobin A1c 6.1 % (-5.6) H 06/13/18 09:05 Calcium 8.1 mg/dL (8.6-10.3) L 06/16/18 03:48 Phosphorus 2.2 mg/dL (2.7-4.5) L 06/13/18 00:38 Total Bilirubin 0.2 mg/dL (0.3-1.0) L 06/15/18 04:48 Troponin I 0.17 ng/mL (< 0.04) H* 06/13/18 00:38 Serum Total Protein 5.2 g/dL (6.4-8.9) L 06/15/18 04:48 Albumin 3.1 g/dL (3.5-5.7) L 06/15/18 04:48 Globulin 2.1 g/dL (2.4-3.5) L 06/15/18 04:48 Parainfluenza 3 (PCR) DETECTED (Not Detect) A 06/14/18 08:46 - Microbiology Findings Microbiology Findings: Microbiology, Last 48 Hours 06/14/18 10:30 Legionella Antigen - Final Urine,Clean Catch Streptococcus pneumoniae Antigen (M - Final - Clinical Findings Intake & Output: Intake & Output 06/15/18 06/15/18 06/16/18 15:59 23:59 07:59 Intake Total 2053 / 2053 736 / 736 1000 / 1000 Output Total 1450 / 1450 Balance 603 / 603 736 / 736 1000 / 1000 Weight 65.2 kg Consult Discharge Plan - Plan Referrals: Luzma Lewis DO [Resident] -
[2018-06-16] MEDS: Budesonide/Formoterol 160/4.5 1 PUFF INH IH SCH ×2 (07:19→19:48)
[2018-06-16] MEDS ORDERED: *HR* Propofol 200 MG/20 ML VIAL IVP ONE (07:48)
[2018-06-16] MEDS ORDERED: Propofol 500 MG/50 ML INFUS..BTL ONE (07:48)
[2018-06-16] MEDS ORDERED: Lidocaine -MPF 2% 2 ML VIAL ONE (07:48)
[2018-06-16] MEDS ORDERED: Albuterol 2.5 MG/3 ML NEBULIZER ONE (08:42)
--- NOTE | 2018-06-16 08:44 | Anesthesia Evaluation PreOp ---
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: Denies Any Significant HX (s/p 2 U PRBC's) Other Medical History: Bleeding (GI bleed) Anesthesia History: No Prior Anesthetic Complications Alcohol Use: none Drug use: none Medications and Allergies Aclidinium [place] [Tudorza Pressair] 400 mcg IH BID 02/24/16 [History] Albuterol Sulfate [Proair Hfa] 2 puff IH Q4H PRN 02/24/16 [History] Budesonide/Formoterol 160/4.5 [Symbicort 160/4.5] 2 puff IH BIDR 02/24/16 [History] Cyclobenzaprine HCl 5 mg PO BID 02/24/16 [History] Gabapentin [Neurontin] 300 mg PO BID 02/24/16 [History] Hydrocodone/Acetaminophen [[place] 10-325 Tablet] 1 each PO BID PRN 06/12/18 [History] traZODone [TraZODone] 100 mg PO HS 06/12/18 [History] Allergy/AdvReac Type Severity Reaction Status Date / Time tapentadol [From Nucynta] Allergy Difficulty Verified 06/12/18 09:39 Breathing doxycycline AdvReac Irritable Verified 06/12/18 09:39 levofloxacin [From Levaquin] AdvReac Irritable Verified 09/28/17 09:47 - Meds/Allergy Pre-op Review Medications Reviewed: Yes Allergies Reviewed: Yes Beta Blockers on Current Med List: No Anesthesia Results - Labs 06/16/18 03:48 06/16/18 03:48 - Imaging EKG: report reviewed, image reviewed (SINUS RHYTHM LOW QRS VOLTAGE IN EXTREMITY LEADS) Additional studies: -2018 TTE: Impressions: Technically challenging due to clinical status - patient dyspneic during exam. Sinus tachycardia low 100's. Grossly, LV systolic function may be normal but is not well quantified due to respiratory variation and tachycardia. Atypical septal motion. Indeterminate diastolic function. Normal right ventricular structure and function. No significant valvular dysfunction. No pulmonary hypertension. Recommend repeat study when clinical status improves. Cardiology consult: Mr. Garcia presents with hypoxia in setting of lung cancer complicated by elevated troponin. Reports atypical chest pain. No acute ECG changes. Echo pending. Reportedly recent stress test and echo at [facility] - requesting records. Suspect demand ischemia in setting of hypoxia. Await Echo findings. Will review stress test results from [facility] when obtained. Reported small volume hemoptysis - recommend close observation while on heparin and aspirin. Likely recommend conservative management given overall comorbidities. 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
[2018-06-16] MEDS ORDERED: predniSONE 20 MG TABLET PO SCH (09:00)
--- NOTE | 2018-06-16 09:09 | Electrocardiograph Report ---
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
--- NOTE | 2018-06-16 10:07 | Gastroenterology Consult Note ---
<Nida Alcantar - Last Filed: 06/16/18 10:05> Date of Encounter: 06/16/18 Time of Encounter: 10:00 - Assessment and plan (1) Acute anemia Current Visit: Yes Status: Acute Assessment and plan: 52 year old male who with multiple comorbidities including lung CA, pneumonia and parainfluenza. He developed anemia and maroon colored stools. EGD was negative. Colonoscopy showed old blood in entire colon but no source of active bleeding found. Continue to monitor H&H, transfuse as needed. If bleeding continues will need bleeding scan. (2) Lung cancer Current Visit: Yes Status: Acute (3) Acute respiratory failure with hypoxia Current Visit: Yes Status: Acute (4) Atrial fibrillation with RVR Current Visit: Yes Status: Acute (5) Bilateral pneumonia Current Visit: No Status: Acute Qualifiers: Pneumonia type: due to unspecified organism Lung location: unspecified part of lung Qualified Code(s): J18.9 - Pneumonia, unspecified organism - Time Spent With Patient Total time spent is greater than 50% in coordination of care (as documented) at patient's floor/unit and/or counseling patient: GI History of Present Illness - Data of Consult Patient: new to practice Consult date: 06/16/18 Requesting Physician: Gopal Blackburn - Consult Narrative Reason for consult: anemia History of present illness: Mr. Garcia is a 52 year old male with pmh of lung cancer s/p one cycle of chemotherapy and radiation, tobacco abuse, COPD. He presented with complaints of shortness of breath, coughing and wheezing. since tuesday. Patient says symptoms were sudden onset and have persisted till today when he had to call EMS because the shortness of breath wasn't resolving. He denies any fevers or chills, admits to wheezing. He also complains of a pressure like left sided chest pain that has been radiating to the right side of 2 days duration. Per EM S, he was noted to be hypoxic at home and required 15L of oxygen via non rebreather mask to bring his sats up to 100%. He has been treated for pneumonia and parainfluenza. He was started on antibiotics and steroids. He developed anemia, hgb dropped from baseline of 13 down to 6.4. He admitted to some maroon colored stools. He is status post EGD which did not show source of bleeding. Past Med Surg Social Fam HX - Past Medical History Medical history: cancer, COPD Additional medical history: lung cancer Psychiatric history: no psych history - Past Surgical History Surgical History: orthopedic, other Additional surgical history: 2 left shoulder surgeries - left CTR - colonoscopy - Social History Smoking Status: Light tobacco smoker Packs per day: 1/4 pack per day Smokeless Tobacco Status: No Alcohol use: none Drug use: none - Family History Mother Adopted: Yes Name: Lana Garcia Living Status: Age at : 89 Cause of : Old age Father Name: Zen Garcia Living Status: Age at : 58 Cause of : Lung cancer Hx Family Cancer: Yes Review of Systems: GI: as per BOIS FORTE GENERAL: denies fever, has some chills EYES: denies yellow discoloration ENT: denies pain with swallowing or difficulty swallowing CARDIO: see HPI RESP: see HPI : denies change in color of urine NEURO: weakness HEME: Denies any bruising MS: denies joint pain, joint swelling or back pain. DERM: denies rash or itching PSYCH: history of anxiety and depression - Constitutional Vitals: Temp Pulse Resp BP Pulse Ox 97 F L 97 16 130/82 98 06/16/18 08:10 06/16/18 08:10 06/16/18 08:10 06/16/18 08:10 06/16/18 08:10 Exam: CONSTITUTIONAL:alert, no acute distress.HEAD:normocephalic.EYES:no jaundice.NECK:no obvious swelling.HEART:regular rate and rhythm, no murmurs.LUNGS:bilateral poor air entry, tight wheezing noted.ABDOMEN:non distended, soft, non tender, no masses palpable, no organomegaly.RECTAL EXAM:Deferred.EXTREMITIES:no clubbing, cyanosis or edema.SKIN:no stigmata of chronic liver disease.NEUROLOGIC:no obvious focal defect. Results - Labs CBC & Chem 7: 06/16/18 03:48 06/16/18 03:48 Labs: Last Result Calcium 8.1 mg/dL (8.6-10.3) L 06/16/18 03:48 Troponin I 0.17 ng/mL (< 0.04) H* 06/13/18 00:38 Triglycerides 101 mg/dL (< 150) 06/13/18 09:05 Entire Visit Hgb 8.4 g/dL (12.9-16.9) L 06/16/18 03:48 Hct 25.0 % (37.5-50.1) L 06/16/18 03:48 PT 11.4 Seconds (9.4-12.1) 06/12/18 13:11 Total Bilirubin 0.2 mg/dL (0.3-1.0) L 06/15/18 04:48 AST 25 Units/L (13-39) 06/15/18 04:48 ALT 18 Units/L (7-52) 06/15/18 04:48 - ABG ABG results: ABG ABG pH 7.32 pH Units (7.32-7.45) 06/12/18 17:04 ABG pCO2 47 mmHg (35-45) H 06/12/18 17:04 ABG pO2 114 mmHg (85-104) H 06/12/18 17:04 ABG O2 Saturation 98 % (95-98) 06/12/18 17:04 PT/INR, D-dimer PT 11.4 Seconds (9.4-12.1) 06/12/18 13:11 - Impressions Impressions Echocardiogram 06/15/18 00:00 Impressions: Technically challenging due to clinical status - patient dyspneic during exam. Sinus tachycardia low 100's. Grossly, LV systolic function may be normal but is not well quantified due to respiratory variation and tachycardia. Atypical septal motion. Indeterminate diastolic function. Normal right ventricular structure and function. No significant valvular dysfunction. No pulmonary hypertension. Recommend repeat study when clinical status improves. Findings: Study Quality * Technically challenging due to clinical status - patient dyspneic during exam. ECG Findings * Sinus tachycardia low 100's. Left Ventricle * Atypical septal motion. * Grossly, LV systolic function appears normal. * Normal LV chamber size and wall motion. * Indeterminate diastolic function. Right Ventricle * Normal right ventricular structure and function. Left Atrium * Normal left atrial size. Right Atrium * Normal right atrial size. Aortic Valve * No aortic regurgitation. * Aortic valve not well visualized. * No aortic stenosis based on Doppler signal obtained. Mitral Valve * No mitral regurgitation. * Normal mitral valve structure. * No mitral stenosis. Tricuspid Valve * Tricuspid valve not well visualized. * Estimated RA pressure is 3 mmHg. Pulmonic Valve * Pulmonic valve is not well visualized. * No pulmonic stenosis. * No pulmonic regurgitation. Pulmonary Artery * Pulmonary artery not well visualized. Aorta * Normally sized aortic root. Pericardium * There is no pericardial effusion present. Interatrial Septum * Interatrial septum not well evaluated. IVC * Normal IVC dimensions and inspiratory collapse. Consult Discharge Plan - Plan Referrals: Luzma Lewis DO [Resident] - <Beryl Diamond - Last Filed: 06/16/18 12:11> Date of Encounter: 06/16/18 Time of Encounter: 08:00 - Time Spent With Patient Total time spent is greater than 50% in coordination of care (as documented) at patient's floor/unit and/or counseling patient: GI History of Present Illness - Data of Consult Requesting Physician: Gopal Blackburn - Consult Narrative History of present illness: Mr. Garcia is a 52 year old male - Constitutional Vitals: Temp Pulse Resp BP Pulse Ox 97.6 F 102 18 109/73 98 06/16/18 11:59 06/16/18 11:59 06/16/18 11:59 06/16/18 11:59 06/16/18 11:59 Results - Labs CBC & Chem 7: 06/16/18 03:48 06/16/18 03:48 Labs: Last Result Calcium 8.1 mg/dL (8.6-10.3) L 06/16/18 03:48 Troponin I 0.17 ng/mL (< 0.04) H* 06/13/18 00:38 Triglycerides 101 mg/dL (< 150) 06/13/18 09:05 Entire Visit Hgb 8.4 g/dL (12.9-16.9) L 06/16/18 03:48 Hct 25.0 % (37.5-50.1) L 06/16/18 03:48 PT 11.4 Seconds (9.4-12.1) 06/12/18 13:11 Total Bilirubin 0.2 mg/dL (0.3-1.0) L 06/15/18 04:48 AST 25 Units/L (13-39) 06/15/18 04:48 ALT 18 Units/L (7-52) 06/15/18 04:48 - ABG ABG results: ABG ABG pH 7.32 pH Units (7.32-7.45) 06/12/18 17:04 ABG pCO2 47 mmHg (35-45) H 06/12/18 17:04 ABG pO2 114 mmHg (85-104) H 06/12/18 17:04 ABG O2 Saturation 98 % (95-98) 06/12/18 17:04 PT/INR, D-dimer PT 11.4 Seconds (9.4-12.1) 06/12/18 13:11 - Impressions Impressions Echocardiogram 06/15/18 00:00 Impressions: Technically challenging due to clinical status - patient dyspneic during exam. Sinus tachycardia low 100's. Grossly, LV systolic function may be normal but is not well quantified due to respiratory variation and tachycardia. Atypical septal motion. Indeterminate diastolic function. Normal right ventricular structure and function. No significant valvular dysfunction. No pulmonary hypertension. Recommend repeat study when clinical status improves. Findings: Study Quality * Technically challenging due to clinical status - patient dyspneic during exam. ECG Findings * Sinus tachycardia low 100's. Left Ventricle * Atypical septal motion. * Grossly, LV systolic function appears normal. * Normal LV chamber size and wall motion. * Indeterminate diastolic function. Right Ventricle * Normal right ventricular structure and function. Left Atrium * Normal left atrial size. Right Atrium * Normal right atrial size. Aortic Valve * No aortic regurgitation. * Aortic valve not well visualized. * No aortic stenosis based on Doppler signal obtained. Mitral Valve * No mitral regurgitation. * Normal mitral valve structure. * No mitral stenosis. Tricuspid Valve * Tricuspid valve not well visualized. * Estimated RA pressure is 3 mmHg. Pulmonic Valve * Pulmonic valve is not well visualized. * No pulmonic stenosis. * No pulmonic regurgitation. Pulmonary Artery * Pulmonary artery not well visualized. Aorta * Normally sized aortic root. Pericardium * There is no pericardial effusion present. Interatrial Septum * Interatrial septum not well evaluated. IVC * Normal IVC dimensions and inspiratory collapse. - Attending Attestation I have personally performed a face to face evaluation on this patient. I have reviewed and agree with the care plan. History and Exam by me shows: pT SEEN. Have dark red stool. On examination: Is in respiratory distress rectal examination does has dark red stool. Assessment: Patient with a history of lung cancer status post chemoradiation therapy now with lower GI bleed EGD is negative did had a drop in his hemoglobin from 12-6. Recommendation: Colonoscopy today follow H&H and transfuse as needed. DC PPI infusion to once a day PPI only
[2018-06-16] MEDS: MethylPREDNISolone 40 MG/ML VIAL IVP SCH (10:47)
[2018-06-16] MEDS: Azithromycin 250 MG TABLET PO SCH (10:47)
[2018-06-16] MEDS: Nicotine 21 MG PATCH.TD24 TD SCH (10:47)
[2018-06-16] MEDS: Metoprolol XL (24 HR) Succ 25 MG TAB.ER.24H PO SCH ×2 (10:48→20:20)
[2018-06-16] MEDS: Aspirin Enteric Coated 81 MG Tablet PO SCH (10:48)
[2018-06-16] MEDS: Gabapentin 300 MG CAPSULE PO SCH ×2 (10:48→20:20)
--- NOTE | 2018-06-16 12:26 | Internal Med Progress Note ---
Hospitalist Progress Note - Encounter Date of Encounter: 06/16/18 Time of Encounter: 12:16 - Subjective Interval History: Pt a bit groggy this AM as he just returned from colonoscopy. However, he thinks his breathing continues to ease slightly, still requiring 4-6L NC with occasional BiPAP to ease work of breathing. Continues to have dark stools. Tolerated EGD and colonoscopy well. Tolerated transfusion yesterday well. - Exam Vitals: Temp Pulse Resp BP Pulse Ox 97.6 F 102 18 109/73 98 06/16/18 11:59 06/16/18 11:59 06/16/18 11:59 06/16/18 11:59 06/16/18 11:59 Exam: General: Alert and oriented, normal work of breathing currently on NC Cardiovascular:Normal S1 & S2, pulse regular but tachycardic Lungs: bilateral biphasic rhoncherous breath sounds, expiratory wheezes, diminished aeration globally Abdomen:Soft, non-tender Extremities:No deformity or swelling Neurological:Normal cognition and motor skills. Non-focal - Summary of Assessment and Plan Summary of Assessment and Plan: Azam Garcia is a 52 M w hx COPD, lung cancer s/p chemorad x1 01/2018, who p/w SOB and fever, hypoxia, and positive RVP for paraflu and positive strep pneumo urine antigen, consistent with the following: Acute blood loss anemia: 2/2 GIB, Hb 13 on admit, down to 6s improved s/p 2u prbc on 06/15 up to 8s. Taken by GI for EGD which was unremarkable, taken for colonoscopy which showed significant old blood throughout colon suggestive of small bowel bleed. - maintain T&C - H&H q12h - holding lovenox ppx - PPI gtt - decrease steroids as below - if continues bleeding, will get tRBC scan or angiography - GI consult, appreciate co-management A-Fib: back in NSR, still tachycardic from respiratory issues, likely stress of respiratory infxn and acute anemia - Toprol 25 bid Post-viral strep pneumo pneumonia: likely had paraflu and then subsequently got strep pneumo pneumonia, resp symptoms today slightly improving - continue Rocephin COPD in acute exacerbation: - duonebs - continue solumedrol 40 daily - azithro - home inhalers Acute hypoxic respiratory failure: 2/2 PNA and paraflu above, requiring Bipap to maintain sats, at home is NOT on home O2 - wean O2 as able - abx as above - copd treatment as above - IS - walk test prior to discharge Cavitary lesions: hx lung cancer, upper lobe predominant emphysema, however new cavitary lesions on CT here (not present on CT here last summer, or on [facility] CT report from May) - pulm consult, appreciate rec's, unlikely TB in context of upper lobe predominant emphysema with superimposed infection Demand ischemia: 2/2 hypoxia, TTE normal, trops peaked 0.2, no CP Smoker: nicotine patch offered PPx: SCDs FEN: regular Lines: PIV Consult: cardio, pulm, GI Code: Full Dispo: needs inpatient for now, likely homegoing eventually - Time Spent with Patient Total time spent is greater than 50% in coordination of care (as documented) at patient's floor/unit and/or counseling patient: Internal Medicine: Result - Labs CBC & Chem 7: 06/16/18 03:48 06/16/18 03:48 Labs: Short CBC 06/15/18 06/15/18 06/16/18 Range/Units 04:48 21:25 03:48 WBC 9.7 13.7 H (4.3-11.1) K/mcL Hgb 6.4 L D 9.6 L D 8.4 L (12.9-16.9) g/dL Hct 18.9 L 28.9 L 25.0 L (37.5-50.1) % Plt Count 171 204 (140-400) K/mcL BMP 06/15/18 06/16/18 04:48 03:48 Sodium 141 141 Potassium 5.1 4.4 Chloride 104 101 Carbon Dioxide 31 H 34 H BUN 39 H 26 H Creatinine 0.58 L 0.56 L Glucose 145 H 134 H Calcium 7.7 L 8.1 L Liver Function 06/15/18 Range/Units 04:48 Total Bilirubin 0.2 L (0.3-1.0) mg/dL Direct Bilirubin 0.0 (0.0-0.2) mg/dL AST 25 (13-39) Units/L ALT 18 (7-52) Units/L Alkaline Phosphatase 42 (34-104) Units/L Albumin 3.1 L (3.5-5.7) g/dL - ABG Interpretation ABG results: ABG ABG pH 7.32 pH Units (7.32-7.45) 06/12/18 17:04 ABG pCO2 47 mmHg (35-45) H 06/12/18 17:04 ABG pO2 114 mmHg (85-104) H 06/12/18 17:04 ABG O2 Saturation 98 % (95-98) 06/12/18 17:04 PT/INR, D-dimer PT 11.4 Seconds (9.4-12.1) 06/12/18 13:11 - Impressions Impressions Echocardiogram 06/15/18 00:00 Impressions: Technically challenging due to clinical status - patient dyspneic during exam. Sinus tachycardia low 100's. Grossly, LV systolic function may be normal but is not well quantified due to respiratory variation and tachycardia. Atypical septal motion. Indeterminate diastolic function. Normal right ventricular structure and function. No significant valvular dysfunction. No pulmonary hypertension. Recommend repeat study when clinical status improves. Findings: Study Quality * Technically challenging due to clinical status - patient dyspneic during exam. ECG Findings * Sinus tachycardia low 100's. Left Ventricle * Atypical septal motion. * Grossly, LV systolic function appears normal. * Normal LV chamber size and wall motion. * Indeterminate diastolic function. Right Ventricle * Normal right ventricular structure and function. Left Atrium * Normal left atrial size. Right Atrium * Normal right atrial size. Aortic Valve * No aortic regurgitation. * Aortic valve not well visualized. * No aortic stenosis based on Doppler signal obtained. Mitral Valve * No mitral regurgitation. * Normal mitral valve structure. * No mitral stenosis. Tricuspid Valve * Tricuspid valve not well visualized. * Estimated RA pressure is 3 mmHg. Pulmonic Valve * Pulmonic valve is not well visualized. * No pulmonic stenosis. * No pulmonic regurgitation. Pulmonary Artery * Pulmonary artery not well visualized. Aorta * Normally sized aortic root. Pericardium * There is no pericardial effusion present. Interatrial Septum * Interatrial septum not well evaluated. IVC * Normal IVC dimensions and inspiratory collapse. Consult Discharge Plan - Plan Referrals: Luzma Lewis DO [Resident] -
--- NOTE | 2018-06-16 13:00 | Cardiology Progress Note ---
Date of Encounter: 06/16/18 Time of Encounter: 11:00 Assessment and Plan (1) Elevated troponin Current Visit: Yes Status: Acute -Troponins 0.26, 0.28, 0.24, 0.17 in the setting of hypoxic respiratory failure, pneumonia. -Reports atypical, pleuritic chest pain ongoing for years. -NO acute ischemic ECG changes. -Was started on ASA, heparin per primary service. Heparin stopped due to acute anemia developing. -Of note, reports hemoptysis previously. Denies hemotpysis overnight. Possible black stools. No benji bleeding seen. Blood seen in gastric body and colon on EGD/colonoscopies. -Reports recent stress and echo at [facility] recently. We have not seen reports yet. -Possible demand ischemia related to above. TTE was a poor study due to patient not ble to lay flat. No sign fluid overload on exam. -He is not a candidate for invasive evaluation secondary to acute anemia from GI bleed on heparin gtt and no strong indication at this time. Continue medical management with asa, statin, and bb. Cardiology will sign off. Call with questions. (2) Atrial fibrillation with RVR Current Visit: Yes Status: Acute Atrial fibrillation with RVR during stay that resolved. Continue toprol xl. No recurrent afib seen. AVg HR 99 bpm , SR. He is not a candidate for skilled nursing AC d/t GI bleed. Continue asa if okay from GI standpoint. (3) Chest pain Current Visit: No Status: Acute Atypical pleuritic chest pain. Symptoms ongoing for over a year. See plan above. Qualifiers: Chest pain type: chest pain on breathing Qualified Code(s): R07.1 - Chest pain on breathing (4) Acute respiratory failure with hypoxia Current Visit: Yes Status: Acute -Admitted with acute hypoxic respiratory failure. -?pneumonia, ATB ordered. -Known lung CA with mets s/p treatment with chemo and radiation and pending more treatment. -Management per primary service. Discussion w patient/family: The assessment and plan as outlined above was discussed with the patient and/or family members who expressed understanding and agreement. All questions were answered. Thank you for involving us in the care of your patient. Please call with any questions. Subjective Principal diagnosis: Pneumonia Interval history: Mr. Garcia is siting on side of bed. Admits to chest pain that is chronic and occurs with cough or movement. SOB improved today. He is mildly drowsy s/p colonoscopy. Objective Vital Signs, Last 4 Hours Temp Pulse Resp BP Pulse Ox 06/16/18 11:59 97.6 F 102 18 109/73 98 General: Conversant, No Apparent Distress HEENT: Atraumatic, Normocephaly, Mucus Membranes Moist Neck: No JVD, Normal carotid pulses Cardiac: Reg Rate and Rhythm, Normal S1 and S2, No Murmur Lungs: Other (Mild conversational dyspnea noted. Loud expiratory wheezes through-out) Neuro: Alert and responsive, No focal deficits noted Abdomen: Soft, Non-Tender Skin: No rashes noted on visualized skin Musculoskeletal: No Chest Wall Tenderness Extremities: No Clubbing, No Cyanosis, No Edema, Normal Pulses Results 06/16/18 03:48 06/16/18 03:48 Lab Results 06/15/18 06/15/18 06/15/18 04:48 04:48 21:25 WBC 9.7 Hgb 6.4 L D 9.6 L D Hct 18.9 L 28.9 L Plt Count 171 Sodium 141 Potassium 5.1 Chloride 104 Carbon Dioxide 31 H BUN 39 H Creatinine 0.58 L Glucose 145 H Calcium 7.7 L Magnesium 2.4 Total Bilirubin 0.2 L AST 25 ALT 18 Alkaline Phosphatase 42 TSH 0.849 06/16/18 06/16/18 03:48 03:48 WBC 13.7 H Hgb 8.4 L Hct 25.0 L Plt Count 204 Sodium 141 Potassium 4.4 Chloride 101 Carbon Dioxide 34 H BUN 26 H Creatinine 0.56 L Glucose 134 H Calcium 8.1 L Magnesium 2.4 Total Bilirubin AST ALT Alkaline Phosphatase TSH - Imaging and Cardiology Echo: report reviewed - EKG Interpretation EKG results cardiology: personally reviewed Consult Discharge Plan - Plan Referrals: Luzma Lewis DO [Resident] -
[2018-06-16] MEDS: cefTRIAXone 2,000 MG in Water for inj. (sterile) 20 ML 20 ML IVP SCH (16:55)
[2018-06-16] MEDS: traZODone 50 MG TABLET PO SCH (20:20)
[2018-06-17 03:44] LABS: Basophils % 0.2 %; Hematocrit 24.9 % (37.5-50.1); Hemoglobin 8.1 g/dL (12.9-16.9); Immature Granulocytes % 2.1 % (0-4); Lymphocytes # 0.8 K/mcL (0.6-4.6); Lymphocytes % 6.4 %; Mean Corpuscular HGB Conc 32.5 g/dL (31.6-35.5); Mean Corpuscular Hemoglobin 30.8 pg (28.0-33.3); Mean Corpuscular Volume 94.7 fL (83.0-100.0); Mean Platelet Volume 10.1 fL (9.4-12.4); Monocytes # 1.5 K/mcL (0.0-1.3); Monocytes % 11.5 %; Neutrophils # 10.1 K/mcL (1.6-8.9); Nucleated Red Blood Cells 0.6 /100 WBC (0); Platelet Count 237 K/mcL (140-400); Red Blood Count 2.63 M/mcL (4.19-5.50); Red Cell Distribution Width 14.7 % (11.5-14.5); Segmented Neutrophils % 79.8 %
[2018-06-17] MEDS: Ipratropium Neb 0.5 MG NEBULIZER IH SCH ×5 (04:06→19:52)
[2018-06-17] MEDS: Levalbuterol Neb 1.25 MG/3 ML IH SCH ×5 (04:06→19:52)
[2018-06-17 04:07] LABS: BUN/Creatinine Ratio 31 (6-26); Blood Urea Nitrogen 12 mg/dL (6-20); Chloride 98 mEq/L (98-107); Glucose 101 mg/dL (70-105); Osmolality,Calculated 290 (280-300); Potassium 4.1 mEq/L (3.5-5.1); Sodium 140 mEq/L (136-145); eGFR For Non-African Americans > 60 (> 60)
[2018-06-17] MEDS: Pantoprazole 40 MG in 0.9 % Sodium Chloride Mini Bag 100 ML IVC SCH ×5 (05:07→22:09)
[2018-06-17 05:29] LABS: Carbon Dioxide 40 mEq/L (23-29)
--- NOTE | 2018-06-17 07:50 | Internal Med Progress Note ---
Hospitalist Progress Note - Encounter Date of Encounter: 06/17/18 Time of Encounter: 12:19 - Subjective Interval History: Pt feels crummy today. Wonders why, if his lungs sound better, he still feels poorly in general. Says his breathing is a bit easier. Doing decent job eating clears and is still having dark stools. - Exam Vitals: Temp Pulse Resp BP Pulse Ox 97.7 F 100 20 118/81 97 06/17/18 07:45 06/17/18 07:45 06/17/18 07:45 06/17/18 07:45 06/17/18 07:45 Exam: General: Alert and oriented, normal work of breathing currently on NC Cardiovascular:Normal S1 & S2, pulse regular but tachycardic Lungs: diminished aeration globally, faint expiratory wheezes Abdomen:Soft, non-tender Extremities:No deformity or swelling Neurological:Normal cognition and motor skills. Non-focal - Summary of Assessment and Plan Summary of Assessment and Plan: Azam Garcia is a 52 M w hx COPD, lung cancer s/p chemorad x1 01/2018, who p/w SOB and fever, hypoxia, and positive RVP for paraflu and positive strep pneumo urine antigen, consistent with the following: Acute blood loss anemia: 2/2 GIB, Hb 13 on admit, down to 6s improved s/p 2u prbc on 06/15 up to 8s. Taken by GI for EGD which was unremarkable, taken for colonoscopy which showed significant old blood throughout colon suggestive of small bowel bleed. - maintain T&C - transfuse 1u prbc today given slow decline - H&H q12h - holding lovenox ppx - d/c PPI gtt - if continues bleeding, will get tRBC scan or angiography - GI consult, appreciate co-management A-Fib: back in NSR, still tachycardic from respiratory issues, likely stress of respiratory infxn and acute anemia - Toprol 25 bid Post-viral strep pneumo pneumonia: likely had paraflu and then subsequently got strep pneumo pneumonia, resp symptoms today slightly improving - continue Rocephin, last dose 06/20 COPD in acute exacerbation: - duonebs - continue solumedrol 40 daily - completed azithro - home inhalers Lung cancer: s/p chemorad 01/2018 Acute hypoxic respiratory failure: 2/2 PNA and paraflu above, at home is not on home O2, is slowly improving each day - wean O2 as able - abx as above - copd treatment as above - IS - walk test prior to discharge Cavitary lesions: hx lung cancer, upper lobe predominant emphysema, however new cavitary lesions on CT here (not present on CT here last summer, or on [facility] CT report from May) - pulm consult, appreciate rec's, unlikely TB in context of upper lobe predominant emphysema with superimposed infection Demand ischemia: 2/2 hypoxia, TTE normal, trops peaked 0.2, no CP Smoker: nicotine patch offered PPx: SCDs FEN: regular Lines: PIV Consult: cardio, pulm, GI Code: Full Dispo: needs inpatient for now, likely homegoing eventually - Time Spent with Patient Total time spent is greater than 50% in coordination of care (as documented) at patient's floor/unit and/or counseling patient: Internal Medicine: Result - Labs CBC & Chem 7: 06/17/18 03:03 06/17/18 03:03 Labs: Short CBC 06/17/18 Range/Units 03:03 WBC 12.6 H (4.3-11.1) K/mcL Hgb 8.1 L (12.9-16.9) g/dL Hct 24.9 L (37.5-50.1) % Plt Count 237 (140-400) K/mcL Neutrophils # 10.1 H (1.6-8.9) K/mcL BMP 06/17/18 03:03 Sodium 140 Potassium 4.1 Chloride 98 Carbon Dioxide 40 H* BUN 12 Creatinine 0.39 L Glucose 101 Calcium 8.0 L - ABG Interpretation ABG results: ABG ABG pH 7.32 pH Units (7.32-7.45) 06/12/18 17:04 ABG pCO2 47 mmHg (35-45) H 06/12/18 17:04 ABG pO2 114 mmHg (85-104) H 06/12/18 17:04 ABG O2 Saturation 98 % (95-98) 06/12/18 17:04 PT/INR, D-dimer PT 11.4 Seconds (9.4-12.1) 06/12/18 13:11 Consult Discharge Plan - Plan Referrals: Luzma Lewis DO [Resident] - 06/23/18 1:00 pm
[2018-06-17] MEDS: Budesonide/Formoterol 160/4.5 1 PUFF INH IH SCH ×2 (08:03→19:52)
[2018-06-17] MEDS: Nicotine 21 MG PATCH.TD24 TD SCH (08:25)
[2018-06-17] MEDS: MethylPREDNISolone 40 MG/ML VIAL IVP SCH (08:25)
[2018-06-17] MEDS: Gabapentin 300 MG CAPSULE PO SCH ×2 (08:25→22:09)
[2018-06-17] MEDS: Aspirin Enteric Coated 81 MG Tablet PO SCH (08:26)
[2018-06-17] MEDS: Metoprolol XL (24 HR) Succ 25 MG TAB.ER.24H PO SCH ×2 (08:26→22:09)
[2018-06-17] MEDS: Azithromycin 250 MG TABLET PO SCH (08:34)
[2018-06-17] MEDS ORDERED: 0.9 % Sodium Chloride 250 ML ONE (09:22)
[2018-06-17] MEDS: cefTRIAXone 2,000 MG in Water for inj. (sterile) 20 ML 20 ML IVP SCH (17:39)
[2018-06-17] MEDS: traZODone 50 MG TABLET PO SCH (22:10)
[2018-06-18] MEDS: Levalbuterol Neb 1.25 MG/3 ML IH SCH ×7 (00:01→23:53)
[2018-06-18] MEDS: Ipratropium Neb 0.5 MG NEBULIZER IH SCH ×7 (00:01→23:53)
[2018-06-18] MEDS: Pantoprazole 40 MG in 0.9 % Sodium Chloride Mini Bag 100 ML IVC SCH ×2 (03:42→09:54)
[2018-06-18 06:26] LABS: Hematocrit 29.6 % (37.5-50.1); Hemoglobin 9.5 g/dL (12.9-16.9); Mean Corpuscular HGB Conc 32.1 g/dL (31.6-35.5); Mean Corpuscular Hemoglobin 30.4 pg (28.0-33.3); Mean Corpuscular Volume 94.9 fL (83.0-100.0); Platelet Count 278 K/mcL (140-400); Red Blood Count 3.12 M/mcL (4.19-5.50); Red Cell Distribution Width 14.8 % (11.5-14.5)
[2018-06-18 06:45] LABS: BUN/Creatinine Ratio 20 (6-26); Blood Urea Nitrogen 10 mg/dL (6-20); Calcium 8.5 mg/dL (8.6-10.3); Carbon Dioxide 39 mEq/L (23-29); Chloride 98 mEq/L (98-107); Glucose 105 mg/dL (70-105); Magnesium 2.2 mg/dL (1.6-2.6); Osmolality,Calculated 291 (280-300); Potassium 3.8 mEq/L (3.5-5.1); Sodium 141 mEq/L (136-145); eGFR For Non-African Americans > 60 (> 60)
[2018-06-18] MEDS: Budesonide/Formoterol 160/4.5 1 PUFF INH IH SCH ×2 (07:42→19:43)
[2018-06-18] MEDS: Aspirin Enteric Coated 81 MG Tablet PO SCH (09:30)
[2018-06-18] MEDS: Gabapentin 300 MG CAPSULE PO SCH ×2 (09:30→21:05)
[2018-06-18] MEDS: Nicotine 21 MG PATCH.TD24 TD SCH (09:30)
[2018-06-18] MEDS: Metoprolol XL (24 HR) Succ 25 MG TAB.ER.24H PO SCH ×2 (09:30→21:05)
[2018-06-18] MEDS: MethylPREDNISolone 40 MG/ML VIAL IVP SCH (09:37)
--- NOTE | 2018-06-18 12:19 | Internal Med Progress Note ---
Hospitalist Progress Note - Encounter Date of Encounter: 06/18/18 Time of Encounter: 12:14 - Subjective Interval History: Pt feels crummy today still, but at least slightly better than yesterday. Asking if he can advance his diet today. Had a BM today which was brown. No abd pain. Is coughing up some peterson sputum. - Exam Vitals: Temp Pulse Resp BP Pulse Ox 98.4 F 108 20 120/90 94 06/18/18 11:43 06/18/18 11:43 06/18/18 11:46 06/18/18 11:43 06/18/18 11:46 Exam: General: Alert and oriented, normal work of breathing currently on NC Cardiovascular: Normal S1 & S2, pulse regular but tachycardic Lungs: diminished aeration globally, faint expiratory wheezes improved from yesterday Abdomen: Soft, non-tender Extremities: No deformity or swelling Neurological: Normal cognition and motor skills. Non-focal - Summary of Assessment and Plan Summary of Assessment and Plan: Azam Garcia is a 52 M w hx COPD, lung cancer s/p chemorad x1 01/2018, who p/w SOB and fever, hypoxia, and positive RVP for paraflu and positive strep pneumo urine antigen, consistent with the following: Acute blood loss anemia: 2/2 GIB, Hb 13 to 6s. EGD unremarkable, colonoscopy w old blood throughout colon suggestive of small bowel bleed. Transfused 3u total and Hb now stable, no further melena. - appreciate GI co-management - holding lovenox ppx - d/c PPI gtt - advance diet to softs A-Fib: back in NSR, still tachycardic from respiratory issues, likely stress of respiratory infxn and acute anemia - Toprol 25 bid Post-viral strep pneumo pneumonia: likely had paraflu and then subsequently got strep pneumo pneumonia, resp symptoms today slightly improving - continue Rocephin, last dose 06/20 COPD in acute exacerbation: completed azithro course - space duonebs - continue prednisone 40 daily - home inhalers Lung cancer: s/p chemorad 01/2018 Acute hypoxic respiratory failure: 2/2 PNA and paraflu above, at home is not on home O2, is slowly improving each day. Likely has chronic component. - wean O2 as able - abx as above - copd treatment as above - walk test today and will likely need home O2 Cavitary lesions: hx lung cancer, upper lobe predominant emphysema, however new cavitary lesions on CT here (not present on CT here last summer, or on [facility] CT report from May) - pulm consult, appreciate rec's, unlikely TB in context of upper lobe predominant emphysema with superimposed infection Demand ischemia: 2/2 hypoxia, TTE normal, trops peaked 0.2, no CP Smoker: nicotine patch offered PPx: SCDs FEN: regular Lines: PIV Consult: cardio, pulm, GI Code: Full Dispo: possibly homegoing tomorrow with O2 - Time Spent with Patient Total time spent is greater than 50% in coordination of care (as documented) at patient's floor/unit and/or counseling patient: Internal Medicine: Result - Labs CBC & Chem 7: 06/18/18 05:43 06/18/18 05:43 Labs: Short CBC 06/18/18 Range/Units 05:43 WBC 13.3 H (4.3-11.1) K/mcL Hgb 9.5 L (12.9-16.9) g/dL Hct 29.6 L (37.5-50.1) % Plt Count 278 (140-400) K/mcL BMP 06/18/18 05:43 Sodium 141 Potassium 3.8 Chloride 98 Carbon Dioxide 39 H BUN 10 Creatinine 0.50 L Glucose 105 Calcium 8.5 L - ABG Interpretation ABG results: ABG ABG pH 7.32 pH Units (7.32-7.45) 06/12/18 17:04 ABG pCO2 47 mmHg (35-45) H 06/12/18 17:04 ABG pO2 114 mmHg (85-104) H 06/12/18 17:04 ABG O2 Saturation 98 % (95-98) 06/12/18 17:04 PT/INR, D-dimer PT 11.4 Seconds (9.4-12.1) 06/12/18 13:11 Consult Discharge Plan - Plan Referrals: Luzma Lewis DO [Resident] - 06/23/18 1:00 pm
[2018-06-18] MEDS: cefTRIAXone 2,000 MG in Water for inj. (sterile) 20 ML 20 ML IVP SCH (16:02)
[2018-06-18] MEDS: traZODone 50 MG TABLET PO SCH (21:05)
[2018-06-19] MEDS: Levalbuterol Neb 1.25 MG/3 ML IH SCH ×3 (03:41→11:00)
[2018-06-19] MEDS: Ipratropium Neb 0.5 MG NEBULIZER IH SCH ×3 (03:41→11:00)
[2018-06-19 06:50] LABS: Hematocrit 31.2 % (37.5-50.1); Hemoglobin 10.1 g/dL (12.9-16.9); Mean Corpuscular HGB Conc 32.4 g/dL (31.6-35.5); Mean Corpuscular Hemoglobin 30.3 pg (28.0-33.3); Mean Corpuscular Volume 93.7 fL (83.0-100.0); Platelet Count 337 K/mcL (140-400); Red Blood Count 3.33 M/mcL (4.19-5.50); Red Cell Distribution Width 14.4 % (11.5-14.5)
[2018-06-19 07:10] LABS: BUN/Creatinine Ratio 26 (6-26); Blood Urea Nitrogen 12 mg/dL (6-20); Calcium 8.7 mg/dL (8.6-10.3); Carbon Dioxide 36 mEq/L (23-29); Chloride 98 mEq/L (98-107); Glucose 115 mg/dL (70-105); Osmolality,Calculated 289 (280-300); Potassium 3.5 mEq/L (3.5-5.1); Sodium 139 mEq/L (136-145); eGFR For Non-African Americans > 60 (> 60)
--- NOTE | 2018-06-19 07:35 | Discharge Summary ---
- NOTES TO OUTPATIENT PROVIDER Notes to Outpatient Provider: Flu and pneumonia now on home O2, had small bowel bleed requiring transfusions Orders not resulted at time of discharge: Pending orders 06/14/18 16:07 AFB Smear [TB] Routine 06/14/18 17:00 AFB Smear [TB] Routine 06/15/18 23:40 AFB Culture, Respiratory [TB] Routine Date of Encounter: 06/19/18 Time of Encounter: 07:32 - Discharge Diagnosis (1) Streptococcus pneumoniae pneumonia Priority: Primary Status: Acute Qualifiers: Laterality: bilateral Lung location: lower lobe of lung Qualified Code(s): J13 - Pneumonia due to Streptococcus pneumoniae Hospital course: Dear Doctors, I recently had the opportunity to care for this patient during their hospital stay at [facility]. Azam Garcia is a 52 M w hx smoking, COPD, lung cancer s/p chemorad x1 01/2018, who presented at time of admission with SOB and fever, found in ED to be hypoxic, and subsequent evaluation revealed positive RVP for parainfluenza as well as positive strep pneumo urine antigen, consistent with acute hypoxic respiratory failure secondary to COPD exacerbation secondary post-viral strep pneumo pneumonia. In the hospital, the patient was placed on O2 and at time required BiPAP to ease work of breathing. However, with abx and steroids the patient's oxygenation did slowly improve. However, by time of discharge, he was still requiring O2, and will be sent home with Rx for O2 due to chronic hypoxemic respiratory failure from his underlying COPD and lung cancer. Of note, during hospitalization, the patient began having melena and his Hb dropped from 13 to 6, requiring transfusion of 3 units of blood. GI performed EGD which was unremarkable, and colonoscopy showed old blood throughout entire colon, suggestive of small bowel bleed. Fortunately, it resolved and did not require further intervention. He also was noted to have small bi-apical cavitary lesions felt by pulmonology to represent his current infection and bullous emphysema rather than TB. Pt will be discharged home on prednisone and with nicotine patches with PCP and Oncology follow up. 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 Please contact me with any questions or concerns regarding their hospital stay. Sincerely, Gopal Blackburn MD - Time Spent with Patient Total time spent providing and/or coordinating discharge services: - Discharge Medications Prescriptions: Aspirin Enteric Coated [Aspirin EC] 81 mg PO DAILY #30 tablet. Metoprolol XL (24 HR) Succ [Toprol Xl] 25 mg PO BID #60 tab.er.24h Nicotine Patch [Nicoderm] 21 mg TD DAILY #30 patch.td24 Omeprazole [PriLOSEC] 20 mg PO DAILY #30 capsule. predniSONE [PredniSONE] 40 mg PO DAILY #8 tablet Home Medications: Aclidinium [place] [Tudorza Pressair] 400 mcg IH BID 02/24/16 [History] Albuterol Sulfate [Proair Hfa] 2 puff IH Q4H PRN 02/24/16 [History] Budesonide/Formoterol 160/4.5 [Symbicort 160/4.5] 2 puff IH BIDR 02/24/16 [History] Cyclobenzaprine HCl 5 mg PO BID 02/24/16 [History] Gabapentin [Neurontin] 300 mg PO BID 02/24/16 [History] traZODone [TraZODone] 100 mg PO HS 06/12/18 [History] Aspirin Enteric Coated [Aspirin EC] 81 mg PO DAILY #30 tablet. 06/19/18 [Rx] Metoprolol XL (24 HR) Succ [Toprol Xl] 25 mg PO BID #60 tab.er.24h 06/19/18 [Rx] Nicotine Patch [Nicoderm] 21 mg TD DAILY #30 patch.td24 06/19/18 [Rx] Omeprazole [PriLOSEC] 20 mg PO DAILY #30 capsule. 06/19/18 [Rx] predniSONE [PredniSONE] 40 mg PO DAILY #8 tablet 06/19/18 [Rx] Allergies/Adverse Reactions: Allergy/AdvReac Type Severity Reaction Status Date / Time tapentadol [From Nucynta] Allergy Difficulty Verified 06/12/18 09:39 Breathing doxycycline AdvReac Irritable Verified 06/12/18 09:39 levofloxacin [From Levaquin] AdvReac Irritable Verified 09/28/17 09:47 Date of admission: 06/12/18 20:51 Primary care physician: PCP NONE Consults: 06/12/18 12:49 Consult to Cardiology [CONS] Routine Comment: Consulting Provider: Cardiology [place] Reason for Consult: elevated troponins r/o AL, new hypoxic resp failure Call Completed: No 06/14/18 08:33 Consult to Pulmonology [CONS] Routine Consulting Provider: Pulm [facility] [place] Reason for Consult: pt w known lung cancer here with pneumonia/copd, CT shows new bilateral upper lobe cavitary lesions Call Completed: No 06/15/18 12:27 Consult to Gastroenterology [CONS] Routine Consulting Provider: Gastroenterology [place] Reason for Consult: acute blood loss anemia Call Completed: Yes 06/15/18 16:28 Consult to Nurse Navigator [CONS] Routine Comment: COPD and Pneumonia - Constitutional Vitals: Temp Pulse Resp BP Pulse Ox 98.1 F 109 22 143/87 96 06/19/18 04:08 06/19/18 04:08 06/19/18 04:08 06/19/18 04:08 06/19/18 04:08 General appearance: Present: mild distress Exam: General: Alert and oriented, normal work of breathing currently on NC Cardiovascular: Normal S1 & S2, pulse regular Lungs: diminished aeration globally, faint expiratory wheezes Abdomen: Soft, non-tender Extremities: No deformity or swelling Neurological: Normal cognition and motor skills. Non-focal - Patient Status Disposition: Home, Self-Care Condition: Fair Functional capacity at discharge: independent ambulation Overall status at discharge: patient is progressing back to baseline - Discharge Instructions Follow Up With: Luzma Lewis DO [Resident] - 06/23/18 1:00 pm - Diet and Activity Activity: resume usual activities as tolerated Diet: advance to your usual diet
[2018-06-19] MEDS: Budesonide/Formoterol 160/4.5 1 PUFF INH IH SCH (07:36)
[2018-06-19 07:48] VITALS: BP 129/92
[2018-06-19] MEDS: Metoprolol XL (24 HR) Succ 25 MG TAB.ER.24H PO SCH (08:45)
[2018-06-19] MEDS: Gabapentin 300 MG CAPSULE PO SCH (08:45)
[2018-06-19] MEDS: Aspirin Enteric Coated 81 MG Tablet PO SCH (08:45)
[2018-06-19] MEDS: Nicotine 21 MG PATCH.TD24 TD SCH (08:46)
[2018-06-19] MEDS ORDERED: predniSONE 20 MG TABLET PO SCH (09:00)
== END 2018-06-19 13:13 | disposition home or self-care (01) | DRG 139 ==
LOC: 2NENU 09:21 → EMEROOARM 09:21 → SUATTDRO 20:51 → OBSVTOIN 20:51 → 2NENU 22:14 → 2NNU 06-15 17:08
PROVIDERS: ADMIT Student in an Organized Health Care Education/Training Program; ATTEND Internal Medicine